=== PATIENT | female | born 1970 | race Caucasian/White ===

== ENCOUNTER → 2016-08-02 | Outpatient (CLI) | payer BC ==
[2016-08-02 10:54] LABS: ALT 55 U/L (9-52); AST 32 U/L (14-36); Cholesterol 163 mg/dL (<200); HDL Cholesterol 53 mg/dL (40-60); Triglycerides 122 mg/dL (<150)
== END | disposition home or self-care (01) ==
LOC: LABWHC1 06:59
PROVIDERS: ATTEND Family Medicine
DX: E78.2 Mixed hyperlipidemia (principal); E03.9 Hypothyroidism, unspecified
CPT/HCPCS: 36415; 80061; 84439; 84443; 84450; 84460; 84481

== ENCOUNTER → 2016-11-11 | Outpatient (CLI) | payer BC ==
--- NOTE | 2016-11-11 14:04 | MM ---
Reason for exam: screening (asymptomatic). Last mammogram was performed 1 year and 1 month ago. Physical Findings: A clinical breast exam by your physician is recommended on an annual basis and results should be correlated with mammographic findings. MG Screening Mammo w CAD Bilateral CC and MLO view(s) were taken. Prior study comparison: October 27, 2015, bilateral MG screening mammo w CAD. October 14, 2014, bilateral MG screening mammo w CAD. The breast tissue is heterogeneously dense. This may lower the sensitivity of mammography. There is chronic nodularity bilaterally. There is no dominant lesion. No significant changes when compared with prior studies. ASSESSMENT: Benign, BI-RAD 2 RECOMMENDATION: Routine screening mammogram of both breasts in 1 year.
== END | disposition home or self-care (01) ==
LOC: RADMAMWWP 07:14
PROVIDERS: ATTEND Obstetrics & Gynecology
DX: Z12.31 Encounter for screening mammogram for malignant neoplasm of breast (principal)

== ENCOUNTER → 2017-01-25 | Outpatient (CLI) | payer BC ==
[2017-01-25 09:51] LABS: CHCM 34.6; HCT 41.4 % (34.0-46.0); HDW 2.61; HGB 13.9 gm/dL (11.4-16.0); MCH 30.2 pg (25.0-35.0); MCHC 33.5 g/dL (31.0-37.0); Mean Platelet Volume 7.5; RDW 12.7 % (11.5-15.5); WBC 7.3 k/uL (3.8-10.6)
[2017-01-25 11:13] LABS: ALT 36 U/L (9-52); AST 17 U/L (14-36); Alkaline Phosphatase 51 U/L (38-126); Anion Gap 11 mmol/L; Blood Urea Nitrogen 18 mg/dL (7-17); Calcium 9.8 mg/dL (8.4-10.2); Carbon Dioxide 26 mmol/L (22-30); Chloride 103 mmol/L (98-107); Cholesterol 158 mg/dL (<200); Glucose 91 mg/dL (74-99); HDL Cholesterol 45 mg/dL (40-60); Non-African American GFR(MDRD) 59 (>60 ml/min/1.73 sqM); Potassium 4.3 mmol/L (3.5-5.1); Sodium 140 mmol/L (137-145); Total Bilirubin 0.5 mg/dL (0.2-1.3)
== END | disposition home or self-care (01) ==
LOC: LABWHC1 08:09
PROVIDERS: ATTEND Family Medicine
DX: E78.2 Mixed hyperlipidemia (principal); I10 Essential (primary) hypertension; E03.9 Hypothyroidism, unspecified
CPT/HCPCS: 36415; 80053; 80061; 84439; 84443; 84481; 85027

== ENCOUNTER → 2017-11-16 | Outpatient (CLI) | payer BC ==
--- NOTE | 2017-11-20 11:40 | MM ---
Reason for exam: screening (asymptomatic). Last mammogram was performed 1 year ago. Physical Findings: A clinical breast exam by your physician is recommended on an annual basis and results should be correlated with mammographic findings. MG 3D Screening Mammo W/Cad Bilateral CC and MLO view(s) were taken. Prior study comparison: November 11, 2016, bilateral MG screening mammo w CAD. October 27, 2015, bilateral MG screening mammo w CAD. The breast tissue is heterogeneously dense. This may lower the sensitivity of mammography. No significant changes when compared with prior studies. ASSESSMENT: Benign, BI-RAD 2 RECOMMENDATION: Routine screening mammogram of both breasts in 1 year.
== END | disposition home or self-care (01) ==
LOC: RADMAMWWP 13:21
PROVIDERS: ATTEND Obstetrics & Gynecology
DX: Z12.31 Encounter for screening mammogram for malignant neoplasm of breast (principal)
CPT/HCPCS: 77063; 77067

== ENCOUNTER → 2017-11-17 | Outpatient (CLI) | payer BC ==
[2017-11-17 09:37] LABS: HCT 39.7 % (34.0-46.0); HGB 12.9 gm/dL (11.4-16.0); MCH 28.2 pg (25.0-35.0); MCHC 32.6 g/dL (31.0-37.0); MCV 86.6 fL (80.0-100.0); Platelet Count 224 k/uL (150-450); RBC 4.58 m/uL (3.80-5.40); RDW 13.7 % (11.5-15.5); WBC 6.5 k/uL (3.8-10.6)
[2017-11-17 09:54] LABS: ALT 37 U/L (9-52); AST 25 U/L (14-36); Albumin 4.7 g/dL (3.5-5.0); Alkaline Phosphatase 50 U/L (38-126); Anion Gap 11 mmol/L; Blood Urea Nitrogen 18 mg/dL (7-17); Carbon Dioxide 29 mmol/L (22-30); Chloride 100 mmol/L (98-107); Cholesterol 203 mg/dL (<200); Glucose 90 mg/dL (74-99); HDL Cholesterol 67 mg/dL (40-60); LDL Cholesterol,Calculated 109 mg/dL (0-99); Potassium 4.5 mmol/L (3.5-5.1); Sodium 140 mmol/L (137-145); Total Bilirubin 0.7 mg/dL (0.2-1.3); Total Protein 7.9 g/dL (6.3-8.2); Triglycerides 135 mg/dL (<150)
== END ==
LOC: LABWHC1 08:10
PROVIDERS: ATTEND Family Medicine
DX: I10 Essential (primary) hypertension (principal); E03.9 Hypothyroidism, unspecified
CPT/HCPCS: 36415; 80053; 80061; 84439; 84443; 84481; 85027

== ENCOUNTER → 2018-05-07 | Outpatient (CLI) | payer BC ==
[2018-05-07 18:44] LABS: Albumin 4.4 g/dL (3.80-4.90); Anion Gap 7.5 mmol/L (4.00-12.00); Calcium 9.2 mg/dL (8.7-10.3); Carbon Dioxide 25.5 mmol/L (21.6-31.8); Globulin 2.2 g/dL (1.6-3.3); Potassium 3.8 mmol/L (3.5-5.5); Total Bilirubin 0.5 mg/dL (0.3-1.2); Total Protein 6.6 g/dL (6.2-8.2)
== END ==
LOC: LABWHC1 09:00
PROVIDERS: ATTEND Family Medicine
DX: I10 Essential (primary) hypertension (principal); E03.9 Hypothyroidism, unspecified; E78.2 Mixed hyperlipidemia
CPT/HCPCS: 36415; 80053; 80061; 84439; 84443; 84481

== ENCOUNTER → 2018-08-01 | Outpatient (CLI) | payer BC ==
[2018-08-01 16:41] LABS: T4, Free (Free Thyroxine) 1.3 ng/dL (0.80-1.80)
== END | disposition home or self-care (01) ==
LOC: LABWHC1 09:02
PROVIDERS: ATTEND Family Medicine
DX: E03.9 Hypothyroidism, unspecified (principal)
CPT/HCPCS: 36415; 84439; 84443; 84481

== ENCOUNTER → 2018-09-13 | Outpatient (CLI) | payer BC ==
[2018-09-13 16:24] LABS: T4, Free (Free Thyroxine) 1.2 ng/dL (0.80-1.80)
== END | disposition home or self-care (01) ==
LOC: LABWHC1 08:22
PROVIDERS: ATTEND Family Medicine
DX: E03.9 Hypothyroidism, unspecified (principal)
CPT/HCPCS: 36415; 84439; 84443

== ENCOUNTER → 2018-12-05 | Outpatient (CLI) | payer BC ==
--- NOTE | 2018-12-06 11:31 | MM ---
Reason for exam: screening (asymptomatic). Last mammogram was performed 1 year and 1 month ago. Physical Findings: A clinical breast exam by your physician is recommended on an annual basis and results should be correlated with mammographic findings. MG 3D Screening Mammo W/Cad Bilateral CC and MLO view(s) were taken. Prior study comparison: November 16, 2017, bilateral MG 3d screening mammo w/cad. November 11, 2016, bilateral MG screening mammo w CAD. The breast tissue is heterogeneously dense. This may lower the sensitivity of mammography. No suspicious abnormality. No significant changes when compared with prior studies. ASSESSMENT: Negative, BI-RAD 1 RECOMMENDATION: Routine screening mammogram of both breasts in 1 year.
== END | disposition home or self-care (01) ==
LOC: RADMAMWWP 07:56
PROVIDERS: ATTEND Obstetrics & Gynecology
DX: Z12.31 Encounter for screening mammogram for malignant neoplasm of breast (principal)
CPT/HCPCS: 77063; 77067

== ENCOUNTER → 2018-12-05 | Outpatient (CLI) | payer BC ==
[2018-12-05 08:40] LABS: Appearance,Urine Clear (Clear); Bilirubin,Urine Negative (Negative); Blood,Urine Negative (Negative); Color,Urine Yellow; Glucose,Urine (UA) Negative (Negative); Ketones,Urine Negative (Negative); Leukocyte Esterase,Urine Negative (Negative); Nitrite,Urine Negative (Negative); PH, Urine 6.5 (5.0-8.0); Protein,Urine Negative (Negative); Specific Gravity,Urine 1.022 (1.001-1.035); Urobilinogen,Urine <2.0 mg/dL (<2.0)
[2018-12-05 08:41] LABS: HGB 11.8 gm/dL (11.4-16.0); MCH 26.9 pg (25.0-35.0); MCHC 33.6 g/dL (31.0-37.0); MCV 80.2 fL (80.0-100.0); Mean Platelet Volume 6.5; Platelet Count 226 k/uL (150-450); RBC 4.36 m/uL (3.80-5.40); RDW 14.5 % (11.5-15.5); WBC 8.6 k/uL (3.8-10.6)
[2018-12-05 17:31] LABS: Albumin 4.3 g/dL (3.80-4.90); Albumin/Globulin Ratio 2.05 (1.60-3.17); Anion Gap 12.4 mmol/L (4.00-12.00); BUN/Creat Ratio 17.78 Ratio (12.00-20.00); Calcium 9.2 mg/dL (8.7-10.3); Carbon Dioxide 29.6 mmol/L (21.6-31.8); Chol/HDL Ratio 2.69; Globulin 2.1 g/dL (1.6-3.3); LDL Cholesterol,Calculated 73.2 mg/dL (0.0-131.0); Potassium 3.4 mmol/L (3.5-5.5); Total Bilirubin 0.4 mg/dL (0.2-1.2); Total Protein 6.4 g/dL (6.2-8.2); VLDL Calculation 24.8 mg/dL (5.00-40.00)
== END | disposition home or self-care (01) ==
LOC: LABWHC1 08:16
PROVIDERS: ATTEND Family Medicine
DX: Z00.01 Encounter for general adult medical examination with abnormal findings (principal)
CPT/HCPCS: 36415; 80053; 80061; 81003; 85027

== ENCOUNTER → 2019-06-24 | Outpatient (CLI) | payer BC ==
[2019-06-24 15:33] LABS: African American GFR (CKD) 76.6 (60.0-200.0); Albumin 4.5 g/dL (3.80-4.90); Albumin/Globulin Ratio 1.8 (1.60-3.17); Anion Gap 5.8 mmol/L (4.00-12.00); Calcium 9.8 mg/dL (8.7-10.3); Carbon Dioxide 32.2 mmol/L (21.6-31.8); Chol/HDL Ratio 3.4; Globulin 2.5 g/dL (1.6-3.3); LDL Cholesterol,Calculated 85.8 mg/dL (0.0-131.0); Non-African American GFR(CKD) 66.1 (60.0-200.0); Potassium 3.5 mmol/L (3.5-5.5); Total Bilirubin 0.5 mg/dL (0.3-1.2); VLDL Calculation 46.2 mg/dL (5.00-40.00)
[2019-06-24 15:42] LABS: T4, Free (Free Thyroxine) 1.4 ng/dL (0.80-1.80)
== END | disposition home or self-care (01) ==
LOC: LABWHC1 09:38
PROVIDERS: ATTEND Family Medicine
DX: I10 Essential (primary) hypertension (principal); E03.9 Hypothyroidism, unspecified; E78.2 Mixed hyperlipidemia
CPT/HCPCS: 36415; 80053; 80061; 84439; 84443; 84481

== ENCOUNTER → 2019-07-30 | Outpatient (CLI) | payer BC | END | disposition home or self-care (01) | LOC: LABWHC1 11:19 | PROVIDERS: ATTEND Pediatrics Pediatric Infectious Diseases | DX: U07.1 COVID-19 (principal) | CPT/HCPCS: 87635 ==

== ENCOUNTER → 2019-08-06 | Outpatient (CLI) | payer BC | END | disposition home or self-care (01) | LOC: LABWHC1 08:10 | PROVIDERS: ATTEND Pediatrics Pediatric Infectious Diseases | DX: Z11.59 Encounter for screening for other viral diseases (principal) ==

== ENCOUNTER → 2019-12-19 | Outpatient (CLI) | payer BC ==
[2019-12-19 10:53] LABS: HCT 43.7 % (34.0-46.0); HGB 14.2 gm/dL (11.4-16.0); MCH 30.2 pg (25.0-35.0); MCHC 32.4 g/dL (31.0-37.0); MCV 93.4 fL (80.0-100.0); Mean Platelet Volume 7.7; Platelet Count 215 k/uL (150-450); RBC 4.68 m/uL (3.80-5.40); RDW 13.1 % (11.5-15.5); WBC 6.9 k/uL (3.8-10.6)
[2019-12-19 16:09] LABS: African American GFR (CKD) 76.1 (60.0-200.0); Albumin 4.4 g/dL (3.80-4.90); Albumin/Globulin Ratio 1.91 (1.60-3.17); Anion Gap 8.9 mmol/L (4.00-12.00); Calcium 9.8 mg/dL (8.7-10.3); Carbon Dioxide 32.1 mmol/L (21.6-31.8); Chol/HDL Ratio 3.14; Globulin 2.3 g/dL (1.6-3.3); Non-African American GFR(CKD) 65.6 (60.0-200.0); Potassium 3.5 mmol/L (3.5-5.5); Total Bilirubin 0.5 mg/dL (0.3-1.2); Total Protein 6.7 g/dL (6.2-8.2)
[2019-12-19 16:19] LABS: T4, Free (Free Thyroxine) 1.3 ng/dL (0.80-1.80)
== END | disposition home or self-care (01) ==
LOC: LABWHC1 08:35
PROVIDERS: ATTEND Family Medicine
DX: Z00.01 Encounter for general adult medical examination with abnormal findings (principal); E03.9 Hypothyroidism, unspecified
CPT/HCPCS: 36415; 80053; 80061; 84439; 84443; 84481; 85027

== ENCOUNTER → 2020-01-27 | Outpatient (CLI) | payer BC ==
[2020-01-27 09:15] LABS: Basophils # (A) 0.1 k/uL (0-0.2); Basophils % (A) 1 %; Eosinophils # (A) 0.2 k/uL (0-0.7); Eosinophils % (A) 2 %; HCT 40.8 % (34.0-46.0); HGB 13.7 gm/dL (11.4-16.0); Lymphocytes # (A) 2.5 k/uL (1.0-4.8); Lymphocytes % (A) 33 %; MCH 30.4 pg (25.0-35.0); MCHC 33.6 g/dL (31.0-37.0); MCV 90.5 fL (80.0-100.0); Mean Platelet Volume 7.3; Monocytes # (A) 0.4 k/uL (0-1.0); Monocytes % (A) 6 %; Neutrophils # (A) 4.2 k/uL (1.3-7.7); Neutrophils % (A) 56 %; Platelet Count 191 k/uL (150-450); WBC 7.5 k/uL (3.8-10.6)
== END | disposition home or self-care (01) ==
LOC: LABPAT 07:51
PROVIDERS: ATTEND Obstetrics & Gynecology
DX: Z01.818 Encounter for other preprocedural examination (principal); N90.69 Other specified hypertrophy of vulva; I10 Essential (primary) hypertension
CPT/HCPCS: 36415; 85025

== ENCOUNTER → 2020-01-29 | Outpatient (CLI) | payer BC ==
--- NOTE | 2020-01-29 14:10 | MM ---
Reason for exam: screening (asymptomatic). Last mammogram was performed 1 year and 2 months ago. Physical Findings: A clinical breast exam by your physician is recommended on an annual basis and results should be correlated with mammographic findings. MG 3D Screening Mammo W/Cad Bilateral CC and MLO view(s) were taken. Prior study comparison: December 05, 2018, bilateral MG 3d screening mammo w/cad. November 16, 2017, bilateral MG 3d screening mammo w/cad. There are scattered fibroglandular densities. There are benign appearing round calcifications in the left breast. There is no discrete abnormality. ASSESSMENT: Benign, BI-RAD 2 RECOMMENDATION: Routine screening mammogram of both breasts in 1 year.
== END | disposition home or self-care (01) ==
LOC: RADMAMWWP 11:39
PROVIDERS: ATTEND Obstetrics & Gynecology
DX: Z12.31 Encounter for screening mammogram for malignant neoplasm of breast (principal)
CPT/HCPCS: 77063; 77067

== ENCOUNTER 2020-02-03 06:56 | Day surgery (SDC) | payer BC ==
--- NOTE | 2020-01-23 14:43 | HP ---
HISTORY AND PHYSICAL This is a 49-year-old white female, 3, para 2-1-0-2 who presents with a history of left labial enlargement and elongation. She states that the labia becomes dragged into the lower vaginal vault with pulling and pain at the time of intercourse. It has also become caught in her undergarments causing pain with daily activities. She is requesting surgical reduction of the left labia minora. REVIEW OF SYSTEMS: Otherwise negative. PAST MEDICAL HISTORY: Significant for anemia, asthma, hypertension, hypothyroidism, thyroid disease. History of HSV. Asthma. PAST SURGICAL HISTORY: Bladder suspension 2013, Lasix surgery 2005, venous stripping x3, and tubal ligation in the past. CURRENT MEDICATIONS: Acyclovir 400 mg tablets daily. Weekly allergy injections. Hydrochlorothiazide daily, metoprolol once daily, simvastatin once daily, Symbicort as needed, Ventolin inhaler as needed, vitamin B complex, vitamin D3, Zyrtec 10 mg once daily, and Montelukast sodium once daily. ALLERGIES: Include PENICILLIN to which reports an unknown reaction. FAMILY HISTORY: Significant for hypertension, diabetes, CVA, and cirrhosis of the liver. OBSTETRIC HISTORY: Significant for normal spontaneous vaginal deliveries x3, unremarkable. SOCIAL HISTORY: Social alcohol use, former tobacco smoker, 1 pack per day. She is and a high- school graduate. On examination, patient is 5 foot 5 inches, 208 pounds, BMI 34. Blood pressure 120/70. HEENT: Exam reveals no thyromegaly, no cervical lymphadenopathy. CHEST: Clear in all yeung. CARDIAC: Exam reveals regular rate and rhythm with no murmur, click, or rub. ABDOMEN: Moderately obese, no organosplenomegaly, no herniorrhaphy. CHEST: Clear to auscultation in all yeung anteriorly and posteriorly. CARDIAC: Exam reveals regular rate and rhythm without murmur, click, or rub. Breasts are bilaterally symmetric to inspection with no skin changes, axillary adenopathy, nipple discharge, or discernible lesions or masses. On external genitalia, the left labia measures 6 cm in length and is quite redundant. The right labia minora measures 2 cm. There is no evidence of trauma. The cervix is within normal limits to inspection, uterus is small, mobile, anteverted, anteflexed. Adnexa are negative bilaterally. Rectal exam reveals good sphincter tone, FIT negative stool. Skin exam reveals no rashes, no lesions. No areas of discoloration. Patient is alert and oriented x3 with intact insight and judgment and normal mood and affect. ASSESSMENT: Dyspareunia with left labial hypertrophy and elongation, patient requesting surgical reduction. PLAN: I have reviewed with the patient the risks including adhesion formation, postoperative dyspareunia, risk of infection, bleeding, or poor wound healing. I have reviewed the risks of aspiration, nerve damage, bleed, or even . Second opinion is offered and declined. We will proceed with surgery as noted above. MMODL / IJN: [id number] /
[2020-01-29 12:38] VITALS: BMI 34.7
[~2020-02-03 06:56] MED LIST: Pre Op ABX Message 1 EACH MISC MISCELLANE ONE
[2020-02-03] MEDS ORDERED: LACTATED RINGERS 1,000 ML IV ONE (07:24)
[2020-02-03] MEDS ORDERED: ONDANSETRON 4 MG/2 ML VIAL ONE (07:26)
[2020-02-03] MEDS ORDERED: ONDANSETRON 4 MG/2 ML VIAL IVP ONE (07:28)
[2020-02-03] MEDS ORDERED: DEXAMETHASONE SOD PHOSPHATE 4 MG/ML 1 ML VIAL IVP ONE (07:29)
[2020-02-03] MEDS ORDERED: fentaNYL (PF) 50 MCG/ML 2 ML AMP ONE (08:19)
[2020-02-03] MEDS ORDERED: PROPOFOL 10 MG/ML 20 ML VIAL IV ONE (08:19)
[2020-02-03] MEDS ORDERED: SUCCINYLCHOLINE CHLORIDE 100 MG/5 ML SYR IV ONE (08:19)
[2020-02-03] MEDS ORDERED: LIDOCAINE 1% INJ 10MG/ML (20 ML MDV) ONE (08:19)
[2020-02-03] MEDS ORDERED: KETOROLAC 15 MG/ML 1 ML VIAL ONE (08:19)
[2020-02-03] MEDS ORDERED: BACITRACIN ZINC 500 UNIT/GM OINT 28.4 GM TUBE TOPICAL ONE (08:47)
--- NOTE | 2020-02-03 09:00 | P.OP ---
Date of Procedure: 02/03/20 Preoperative Diagnosis: Redundant left labial minora, dyspareunia Postoperative Diagnosis: Same Procedure(s) Performed: Reduction left labial minora Anesthesia: CHANCEA Surgeon: Aurelia Mendez Estimated Blood Loss (ml): 10 IV fluids (ml): 300 Urine output (ml): 25 Pathology: none sent Condition: stable Disposition: PACU Description of Procedure: Patient is brought to the operating suite where general anesthetic is administered without difficulty. The appropriate timeout is performed to assure proper patient and procedural identification. Urine hCG is negative. Antibiotics are not deemed necessary. The perineal body, cervix labia and external genitalia are all prepped and draped in usual sterile fashion. A sharp scalpel is used to incise and reduce the left labia minora for approximately 5 cm of tissue medially, 7 cm in the superior inferior aspect. The base is cauterized with electrocautery for excellent hemostasis. A 2-0 Vicryl is used now in a running fashion to bring the edges of the defect together. The left labia minora now appears symmetric to the right. Basic tracing is placed on the wound. . Pad is placed. All sponge needle and enhancement counts are correct. Toradol is given to the patient prior to leaving the operative suite. All sponge needle and enhancement counts are correct. Specimen is not sent to pathology. Patient is brought back to the recovery room in very good condition with stable vital signs including a blood pressure 119/63, pulse 57, 98% O2 saturation. She will follow-up with me in the office in 2 weeks. Ibuprofen will be used postoperatively as needed for pain. No intercourse.
[2020-02-03 09:08] VITALS: TEMP 97
[2020-02-03] MEDS ORDERED: HYDROmorphone 0.5 MG/0.5 ML SYRINGE IVP ONE (09:11)
[2020-02-03 09:41] VITALS: PULSE 56
[2020-02-03 09:57] VITALS: BP 116/69; RESP 18
== END 2020-02-03 10:08 | disposition home or self-care (01) ==
LOC: OR 06:56
PROVIDERS: ATTEND Obstetrics & Gynecology
DX: N90.69 Other specified hypertrophy of vulva (principal); N94.10 Unspecified dyspareunia; D64.9 Anemia, unspecified; J45.909 Unspecified asthma, uncomplicated; I10 Essential (primary) hypertension; E03.9 Hypothyroidism, unspecified; Z87.891 Personal history of nicotine dependence; Z86.19 Personal history of other infectious and parasitic diseases; Z98.51 Tubal ligation status; Z98.890 Other specified postprocedural states; Z82.49 Family history of ischemic heart disease and other diseases of the circulatory system; Z83.3 Family history of diabetes mellitus; Z82.3 Family history of stroke; Z83.79 Family history of other diseases of the digestive system; Z79.899 Other long term (current) drug therapy; Z88.0 Allergy status to penicillin
CPT/HCPCS: 81025; 56620; J1100; J2405; J2001; J3010; J1885; J0330; J2704; J1170

== ENCOUNTER 2020-02-12 08:54 | Day surgery (SDC) | payer BC ==
[2020-02-10 12:30] VITALS: BMI 35.7
[~2020-02-12 08:54] MED LIST changes: +LACTATED RINGERS 1,000 ML IV SCH; -Pre Op ABX Message 1 EACH MISC MISCELLANE ONE
[2020-02-12 09:17] VITALS: TEMP 97
[2020-02-12] MEDS ORDERED: PROPOFOL 10 MG/ML 20 ML VIAL IV ONE (10:42)
--- NOTE | 2020-02-12 10:54 | P.PCN ---
Date of Procedure: 02/12/20 Procedure(s) Performed: BRIEF HISTORY: Patient is a 49-year-old pleasant white female scheduled for an elective colonoscopy as a part of screening for colorectal neoplasia. PROCEDURE PERFORMED: Colonoscopy. PREOPERATIVE DIAGNOSIS: Screening for colon cancer. IV sedation per Anesthesia. PROCEDURE: After informed consent was obtained, the patient, was brought into the endoscopy unit. IV sedation was administered by Anesthesia under continuous monitoring. Digital rectal examination was normal. Initially the Olympus CF-160 flexible video colonoscope was then inserted in the rectum, gradually advanced into the cecum without any difficulty. Careful examination was performed as the scope was gradually being withdrawn. Ileocecal valve and the appendiceal orifice were visualized and appeared normal. Prep was excellent. Mucosa of the cecum, ascending colon, transverse colon, descending colon, sigmoid colon, and rectum appeared normal. Retroflexion was performed in the rectum and no lesions were seen. The patient tolerated the procedure well. IMPRESSION: Normal-appearing colon from rectum to cecum with no evidence of colorectal neoplasia . RECOMMENDATIONS: Findings of this examination were discussed with the patient as well as a family. She was advised to have a repeat screening colonoscopy in 10 years.
[2020-02-12 11:14] VITALS: BP 118/77; PULSE 60; RESP 16
== END 2020-02-12 11:22 | disposition home or self-care (01) ==
LOC: ORWHC2ENDO 08:54
PROVIDERS: ATTEND Internal Medicine Gastroenterology
DX: Z12.11 Encounter for screening for malignant neoplasm of colon (principal); I10 Essential (primary) hypertension; E78.5 Hyperlipidemia, unspecified; E07.9 Disorder of thyroid, unspecified; Z79.890 Hormone replacement therapy; Z79.51 Long term (current) use of inhaled steroids; Z79.899 Other long term (current) drug therapy; Z88.0 Allergy status to penicillin
CPT/HCPCS: 84703; J2704; G0121; 45378

== ENCOUNTER → 2020-02-26 | Outpatient (CLI) | payer BC ==
[2020-02-26 16:48] LABS: Basophils % (A) 0 %; Eosinophils # (A) 0.2 k/uL (0-0.7); Eosinophils % (A) 3 %; HCT 39.9 % (34.0-46.0); HGB 13.4 gm/dL (11.4-16.0); Lymphocytes # (A) 2.3 k/uL (1.0-4.8); Lymphocytes % (A) 36 %; MCH 29.9 pg (25.0-35.0); MCHC 33.6 g/dL (31.0-37.0); Mean Platelet Volume 7.8; Monocytes # (A) 0.5 k/uL (0-1.0); Monocytes % (A) 7 %; Neutrophils # (A) 3.4 k/uL (1.3-7.7); Neutrophils % (A) 52 %; Platelet Count 269 k/uL (150-450); RBC 4.49 m/uL (3.80-5.40); RDW 13.8 % (11.5-15.5); WBC 6.5 k/uL (3.8-10.6)
[2020-02-26 23:56] LABS: African American GFR (CKD) 76.1 (60.0-200.0); Albumin 4.5 g/dL (3.80-4.90); Albumin/Globulin Ratio 1.96 (1.60-3.17); Anion Gap 5.6 mmol/L (4.00-12.00); Calcium 9.4 mg/dL (8.7-10.3); Carbon Dioxide 33.4 mmol/L (21.6-31.8); Globulin 2.3 g/dL (1.6-3.3); Non-African American GFR(CKD) 65.6 (60.0-200.0); Potassium 3.4 mmol/L (3.5-5.5); Total Bilirubin 0.4 mg/dL (0.2-1.2); Total Protein 6.8 g/dL (6.2-8.2)
== END | disposition home or self-care (01) ==
LOC: LABWHC1 15:24
PROVIDERS: ATTEND Physician Assistant
DX: K62.5 Hemorrhage of anus and rectum (principal)
CPT/HCPCS: 36415; 80053; 85025

== ENCOUNTER 2020-03-06 20:32 | Observation (INO) | payer BC ==
[2020-03-06] MEDS ORDERED: SODIUM CHLORIDE 0.9% 1,000 ML IV STA (21:09)
--- NOTE | 2020-03-06 21:13 | ED ---
GI Bleed HPI - General Chief complaint: GI Bleed Stated complaint: GI bleed Time Seen by Provider: 03/06/20 20:49 Source: patient, RN notes reviewed, old records reviewed Mode of arrival: ambulatory Limitations: no limitations - History of Present Illness Initial comments: This is a 49-year-old female DF for evaluation, she has recent colonoscopy and has had GI bleeding for one month bright red blood per rectum. States she does have known history of hemorrhoids is similar to hemorrhoidal bleeding patient is at times feeling lightheaded dizzy and concern over significant blood loss and persistent blood loss. Otherwise no abdominal pain MD complaint: blood on toilet paper, blood streaked stool -: month(s) Radiation: none Quality: painless Consistency: constant Improves with: none Worsens with: none Context: hemorrhoids, other (Patient also has had recent colonoscopy) Associated Symptoms: weakness, other (Occasional symptoms of near-syncope) - Related Data Home Medications Medication Instructions Recorded Confirmed Albuterol Inhaler [Ventolin Hfa 2 puff INHALATION RT-QID PRN 01/29/20 03/06/20 Inhaler] Cetirizine HCl [Zyrtec] 10 mg PO DAILY 01/29/20 03/06/20 Cholecalciferol [Vitamin D3 (25 1,000 unit PO DAILY 01/29/20 03/06/20 Mcg = 1000 Iu)] Levothyroxine Sodium [Tirosint] 88 mcg PO DAILY 01/29/20 03/06/20 Metoprolol Tartrate [Lopressor] 25 mg PO DAILY 01/29/20 03/06/20 Montelukast Sodium [Singulair] 10 mg PO HS 01/29/20 03/06/20 Simvastatin [Zocor] 20 mg PO HS 01/29/20 03/06/20 Vitamin B Complex 1 each PO DAILY 01/29/20 03/06/20 traZODone HCL 50 mg PO HS PRN 01/29/20 03/06/20 Budesonide/Formoterol Fumarate 2 puff INHALATION RT-BID 02/10/20 03/06/20 [Symbicort 160-4.5 Mcg Inhaler] Acetaminophen [Tylenol] 325 mg PO DAILY PRN 03/06/20 03/06/20 Acyclovir [Zovirax] 400 mg PO DAILY 03/06/20 03/06/20 Fluticasone Propionate [Flonase 1 spray EA NOSTRIL DAILY PRN 03/06/20 03/06/20 Allergy Relief] Ibuprofen [Motrin Ib] 600 mg PO ONCE PRN 03/06/20 03/06/20 Multivit-Min/Iron/Folic/Lutein 1 tab PO DAILY 03/06/20 03/06/20 [Centrum Silver Women Tablet] hydroCHLOROthiazide [Hydrodiuril] 50 mg PO BID 03/06/20 03/06/20 Previous Rx's Medication Instructions Recorded polyethylene glycoL 3350 [Miralax] 17 gm PO DAILY powd.pack 03/07/20 Allergies Allergy/AdvReac Type Severity Reaction Status Date / Time Penicillins Allergy Unknown Verified 03/06/20 22:07 Childhood Sulfa (Sulfonamide Allergy Unknown Verified 03/06/20 22:07 Antibiotics) Childhood adhesive tape AdvReac Itching Verified 03/06/20 22:07 Review of Systems ROS Statement: Those systems with pertinent positive or pertinent negative responses have been documented in the HPI. ROS Other: All systems not noted in ROS Statement are negative. Past Medical History Past Medical History: Asthma, Hyperlipidemia, Hypertension Additional Past Medical History / Comment(s): INTERNAL BLEEDING HEMORRHOIDS History of Any Multi-Drug Resistant Organisms: None Reported Past Surgical History: No Surgical Hx Reported, Bladder Surgery, Tubal Ligation Additional Past Surgical History / Comment(s): 02/03/20-REDUCTION OF LT LABIAL MINOR. RT VEIN LIGATION. BLADDER SUSPENSION. D & C Past Anesthesia/Blood Transfusion Reactions: Postoperative Nausea & Vomiting (PONV) Past Psychological History: No Psychological Hx Reported Smoking Status: Former smoker Past Alcohol Use History: None Reported Past Drug Use History: None Reported - Past Family History Mother Family Medical History: No Reported History General Exam Limitations: no limitations General appearance: alert, in no apparent distress Head exam: Present: atraumatic, normocephalic, normal inspection Eye exam: Present: normal appearance, PERRL, EOMI. Absent: scleral icterus, conjunctival injection, periorbital swelling ENT exam: Present: normal exam, mucous membranes moist Neck exam: Present: normal inspection. Absent: tenderness, meningismus, lymphadenopathy Respiratory exam: Present: normal lung sounds bilaterally. Absent: respiratory distress, wheezes, rales, rhonchi, stridor Cardiovascular Exam: Present: regular rate, normal rhythm, normal heart sounds. Absent: systolic murmur, diastolic murmur, rubs, gallop, clicks GI/Abdominal exam: Present: soft, normal bowel sounds. Absent: distended, tenderness, guarding, rebound, rigid Extremities exam: Present: normal inspection, full ROM, normal capillary refill. Absent: tenderness, pedal edema, joint swelling, calf tenderness Back exam: Present: normal inspection Neurological exam: Present: alert, oriented X3, CN II-XII intact Psychiatric exam: Present: normal affect, normal mood Skin exam: Present: warm, dry, intact, normal color. Absent: rash Course Vital Signs 03/06/20 03/06/20 20:43 22:30 Temperature 99.2 F Pulse Rate 91 88 Respiratory 18 18 Rate Blood Pressure 161/90 131/84 O2 Sat by Pulse 96 97 Oximetry - Reevaluation(s) Reevaluation #1: Medical record is reviewed Patient reevaluated feeling fine, no significant acute bleeding here in the ER Patient informed results questions answered Patient prefers observation Medical Decision Making - Medical Decision Making 49-year-old female presents today for evaluation regards to right red blood per rectum with hemorrhoids. Patient has recent colonoscopy and some bleeding from rectum for one month - Lab Data Result diagrams: 03/06/20 21:25 03/06/20 21:25 Lab Results 03/06/20 03/06/20 03/06/20 Range/Units 21:25 21:25 21:25 WBC 7.1 (3.8-10.6) k/uL RBC 4.46 (3.80-5.40) m/uL Hgb 13.7 (11.4-16.0) gm/dL Hct 38.8 (34.0-46.0) % MCV 87.2 (80.0-100.0) fL MCH 30.7 (25.0-35.0) pg MCHC 35.3 (31.0-37.0) g/dL RDW 13.1 (11.5-15.5) % Plt Count 258 (150-450) k/uL MPV 7.4 Neutrophils % 65 % Lymphocytes % 25 % Monocytes % 4 % Eosinophils % 3 % Basophils % 1 % Neutrophils # 4.6 (1.3-7.7) k/uL Lymphocytes # 1.8 (1.0-4.8) k/uL Monocytes # 0.3 (0-1.0) k/uL Eosinophils # 0.2 (0-0.7) k/uL Basophils # 0.1 (0-0.2) k/uL PT 9.5 (9.0-12.0) sec INR 0.9 (<1.2) APTT 22.8 (22.0-30.0) sec Sodium 137 (137-145) mmol/L Potassium 3.3 L (3.5-5.1) mmol/L Chloride 100 (98-107) mmol/L Carbon Dioxide 28 (22-30) mmol/L Anion Gap 9 mmol/L BUN 14 (7-17) mg/dL Creatinine 0.88 (0.52-1.04) mg/dL Est GFR (CKD-EPI)AfAm 89 (>60 ml/min/1.73 sqM) Est GFR (CKD-EPI)NonAf 77 (>60 ml/min/1.73 sqM) Glucose 171 H (74-99) mg/dL Calcium 9.7 (8.4-10.2) mg/dL Magnesium 1.7 (1.6-2.3) mg/dL Total Bilirubin 0.3 (0.2-1.3) mg/dL AST 36 (14-36) U/L ALT 49 H (4-34) U/L Alkaline Phosphatase 64 (38-126) U/L Creatine Kinase 85 (30-135) U/L Troponin I (0.000-0.034) ng/mL Total Protein 7.7 (6.3-8.2) g/dL Albumin 4.6 (3.5-5.0) g/dL Blood Type Blood Type Confirm Blood Type Recheck Bld Type Recheck Status Antibody Screen Spec Expiration Date 03/06/20 03/06/20 03/06/20 Range/Units 21:25 21:25 21:43 WBC (3.8-10.6) k/uL RBC (3.80-5.40) m/uL Hgb (11.4-16.0) gm/dL Hct (34.0-46.0) % MCV (80.0-100.0) fL MCH (25.0-35.0) pg MCHC (31.0-37.0) g/dL RDW (11.5-15.5) % Plt Count (150-450) k/uL MPV Neutrophils % % Lymphocytes % % Monocytes % % Eosinophils % % Basophils % % Neutrophils # (1.3-7.7) k/uL Lymphocytes # (1.0-4.8) k/uL Monocytes # (0-1.0) k/uL Eosinophils # (0-0.7) k/uL Basophils # (0-0.2) k/uL PT (9.0-12.0) sec INR (<1.2) APTT (22.0-30.0) sec Sodium (137-145) mmol/L Potassium (3.5-5.1) mmol/L Chloride (98-107) mmol/L Carbon Dioxide (22-30) mmol/L Anion Gap mmol/L BUN (7-17) mg/dL Creatinine (0.52-1.04) mg/dL Est GFR (CKD-EPI)AfAm (>60 ml/min/1.73 sqM) Est GFR (CKD-EPI)NonAf (>60 ml/min/1.73 sqM) Glucose (74-99) mg/dL Calcium (8.4-10.2) mg/dL Magnesium (1.6-2.3) mg/dL Total Bilirubin (0.2-1.3) mg/dL AST (14-36) U/L ALT (4-34) U/L Alkaline Phosphatase (38-126) U/L Creatine Kinase (30-135) U/L Troponin I <0.012 (0.000-0.034) ng/mL Total Protein (6.3-8.2) g/dL Albumin (3.5-5.0) g/dL Blood Type A Negative Blood Type Confirm A Negative Blood Type Recheck No Previous Record Bld Type Recheck Status CABO Indicated Antibody Screen NEGATIVE Spec Expiration Date 03/09/20202324 Disposition Clinical Impression: Hemorrhoids, Lower gastrointestinal hemorrhage Disposition: ADMITTED IP TO THIS [facility] Condition: Good Is patient prescribed a controlled substance at d/c from ED?: No
[2020-03-06 21:39] LABS: Basophils # (A) 0.1 k/uL (0-0.2); Basophils % (A) 1 %; Eosinophils # (A) 0.2 k/uL (0-0.7); Eosinophils % (A) 3 %; HCT 38.8 % (34.0-46.0); HGB 13.7 gm/dL (11.4-16.0); Lymphocytes # (A) 1.8 k/uL (1.0-4.8); Lymphocytes % (A) 25 %; MCH 30.7 pg (25.0-35.0); MCHC 35.3 g/dL (31.0-37.0); MCV 87.2 fL (80.0-100.0); Mean Platelet Volume 7.4; Monocytes # (A) 0.3 k/uL (0-1.0); Monocytes % (A) 4 %; Neutrophils # (A) 4.6 k/uL (1.3-7.7); Neutrophils % (A) 65 %; Platelet Count 258 k/uL (150-450); RBC 4.46 m/uL (3.80-5.40); RDW 13.1 % (11.5-15.5); WBC 7.1 k/uL (3.8-10.6)
[2020-03-06 21:46] LABS: INR 0.9 (<1.2); Prothrombin Time 9.5 sec (9.0-12.0)
[2020-03-06 21:47] LABS: Partial Thromboplastin Time 22.8 sec (22.0-30.0)
[2020-03-06 21:49] LABS: Albumin 4.6 g/dL (3.5-5.0); Calcium 9.7 mg/dL (8.4-10.2); Magnesium 1.7 mg/dL (1.6-2.3); Potassium 3.3 mmol/L (3.5-5.1); Total Bilirubin 0.3 mg/dL (0.2-1.3); Total Protein 7.7 g/dL (6.3-8.2)
[2020-03-07 03:30] VITALS: RESP 16
[2020-03-07 08:08] VITALS: BP 138/78; PULSE 67; TEMP 96.5
[2020-03-07] MEDS ORDERED: polyethylene glycoL 3350 17 GM POWD.PACK PO SCH (09:00)
[2020-03-07] MEDS ORDERED: traZODone HCL 50 MG TAB PO PRN (11:21)
[2020-03-07] MEDS ORDERED: ACETAMINOPHEN TAB 325 MG TAB PO PRN (11:21)
[2020-03-07] MEDS ORDERED: IBUPROFEN 600 MG TAB PO PRN (11:21)
[2020-03-07] MEDS ORDERED: ALBUTEROL NEBULIZED 2.5 MG/3 ML INHALATION PRN (11:21)
[2020-03-07] MEDS ORDERED: FLUTICASONE 50MCG/SPRAY NASAL 16GM EA NOSTRIL PRN (11:21)
[2020-03-07] MEDS ORDERED: SODIUM CHLORIDE 0.9% 1,000 ML IV SCH (11:30)
[2020-03-07] MEDS ORDERED: CHOLECALCIFEROL 1,000 UNIT TAB PO SCH (11:30)
[2020-03-07] MEDS ORDERED: ACYCLOVIR 200 MG CAP PO SCH (11:30)
[2020-03-07] MEDS ORDERED: METOPROLOL TARTRATE 25 MG TAB PO SCH (11:30)
[2020-03-07] MEDS ORDERED: MULTIVITAMINS, THERA 1 EACH TAB PO SCH (11:30)
[2020-03-07] MEDS ORDERED: LEVOTHYROXINE SODIUM 88 MCG PO SCH (11:30)
[2020-03-07] MEDS ORDERED: LORATADINE 10 MG TAB PO SCH (11:30)
[2020-03-07] MEDS ORDERED: NON FORMULARY DRUG (Vitamin B Complex [Vitamin B Complex] 1 EACH Capsule) PO SCH (11:30)
--- NOTE | 2020-03-07 12:58 | P.GSCN ---
History of Present Illness Consult date: 03/07/20 Reason for Consult: Rectal bleeding History of present illness: The patient is a 49-year-old female who is been having some rectal bleeding. Jamel jacobs underwent a normal colonoscopy February 11. She has had rectal bleeding from internal hemorrhoids in the past which was treated with suppositories for 5 years ago. This rectal bleeding is not painful. She doesn't have any diarrhea or constipation. No perianal pain or ripping. Main symptom is red blood in the toilet bowl Review of Systems All systems: negative Past Medical History Past Medical History: Asthma, Hyperlipidemia, Hypertension Additional Past Medical History / Comment(s): INTERNAL BLEEDING HEMORRHOIDS, hypothyroidism History of Any Multi-Drug Resistant Organisms: None Reported Past Surgical History: No Surgical Hx Reported, Bladder Surgery, Tubal Ligation Additional Past Surgical History / Comment(s): 02/03/20-REDUCTION OF LT LABIAL MINOR. RT VEIN LIGATION. BLADDER SUSPENSION. D & C Past Anesthesia/Blood Transfusion Reactions: Postoperative Nausea & Vomiting (PO NV) Past Psychological History: No Psychological Hx Reported Smoking Status: Never smoker Past Alcohol Use History: None Reported Additional Past Alcohol Use History / Comment(s): SMOKED FOR ABOUT 6 MONTHS A TEEN Past Drug Use History: None Reported - Past Family History Mother Family Medical History: No Reported History Medications and Allergies Home Medications Medication Instructions Recorded Confirmed Type Albuterol Inhaler [Ventolin Hfa 2 puff INHALATION RT-QID PRN 01/29/20 03/06/20 History Inhaler] Cetirizine HCl [Zyrtec] 10 mg PO DAILY 01/29/20 03/06/20 History Cholecalciferol [Vitamin D3 (25 1,000 unit PO DAILY 01/29/20 03/06/20 History Mcg = 1000 Iu)] Levothyroxine Sodium [Tirosint] 88 mcg PO DAILY 01/29/20 03/06/20 History Metoprolol Tartrate [Lopressor] 25 mg PO DAILY 01/29/20 03/06/20 History Montelukast Sodium [Singulair] 10 mg PO HS 01/29/20 03/06/20 History Simvastatin [Zocor] 20 mg PO HS 01/29/20 03/06/20 History Vitamin B Complex 1 each PO DAILY 01/29/20 03/06/20 History traZODone HCL 50 mg PO HS PRN 01/29/20 03/06/20 History Budesonide/Formoterol Fumarate 2 puff INHALATION RT-BID 02/10/20 03/06/20 Hist ory [Symbicort 160-4.5 Mcg Inhaler] Acetaminophen [Tylenol] 325 mg PO DAILY PRN 03/06/20 03/06/20 History Acyclovir [Zovirax] 400 mg PO DAILY 03/06/20 03/06/20 History Fluticasone Propionate [Flonase 1 spray EA NOSTRIL DAILY PRN 03/06/20 03/06/20 History Allergy Relief] Ibuprofen [Motrin Ib] 600 mg PO ONCE PRN 03/06/20 03/06/20 History Multivit-Min/Iron/Folic/Lutein 1 tab PO DAILY 03/06/20 03/06/20 History [Centrum Silver Women Tablet] hydroCHLOROthiazide [Hydrodiuril] 50 mg PO BID 03/06/20 03/06/20 History Allergies Allergy/AdvReac Type Severity Reaction Status Date / Time Penicillins Allergy Unknown Verified 03/06/20 22:07 Childhood Sulfa (Sulfonamide Allergy Unknown Verified 03/06/20 22:07 Antibiotics) Childhood adhesive tape AdvReac Itching Verified 03/06/20 22:07 Surgical - Exam Osteopathic Statement: *. No significant issues noted on an osteopathic structural exam other than those noted in the History and Physical/Consult. Vital Signs Temp Pulse Resp BP Pulse Ox 99.2 F 91 18 161/90 96 03/06/20 20:43 03/06/20 20:43 03/06/20 20:43 03/06/20 20:43 03/06/20 20:43 - General well developed, well nourished, no distress - Neck trachea midline - Abdomen Abdomen: soft, non tender, bowel sounds - Rectum No significant external hemorrhoidal disease. No blood. No masses Results - Labs 03/06/20 21:25 03/06/20 21:25 Abnormal Lab Results - Last 24 Hours (Table) 03/06/20 Range/Units 21:25 Potassium 3.3 L (3.5-5.1) mmol/L Glucose 171 H (74-99) mg/dL ALT 49 H (4-34) U/L Diabetes panel 03/06/20 Range/Units 21:25 Sodium 137 (137-145) mmol/L Potassium 3.3 L (3.5-5.1) mmol/L Chloride 100 (98-107) mmol/L Carbon Dioxide 28 (22-30) mmol/L BUN 14 (7-17) mg/dL Creatinine 0.88 (0.52-1.04) mg/dL Glucose 171 H (74-99) mg/dL Calcium 9.7 (8.4-10.2) mg/dL AST 36 (14-36) U/L ALT 49 H (4-34) U/L Alkaline Phosphatase 64 (38-126) U/L Total Protein 7.7 (6.3-8.2) g/dL Albumin 4.6 (3.5-5.0) g/dL Calcium panel 03/06/20 Range/Units 21:25 Calcium 9.7 (8.4-10.2) mg/dL Albumin 4.6 (3.5-5.0) g/dL Pituitary panel 03/06/20 Range/Units 21:25 Sodium 137 (137-145) mmol/L Potassium 3.3 L (3.5-5.1) mmol/L Chloride 100 (98-107) mmol/L Carbon Dioxide 28 (22-30) mmol/L BUN 14 (7-17) mg/dL Creatinine 0.88 (0.52-1.04) mg/dL Glucose 171 H (74-99) mg/dL Calcium 9.7 (8.4-10.2) mg/dL Adrenal panel 03/06/20 Range/Units 21:25 Sodium 137 (137-145) mmol/L Potassium 3.3 L (3.5-5.1) mmol/L Chloride 100 (98-107) mmol/L Carbon Dioxide 28 (22-30) mmol/L BUN 14 (7-17) mg/dL Creatinine 0.88 (0.52-1.04) mg/dL Glucose 171 H (74-99) mg/dL Calcium 9.7 (8.4-10.2) mg/dL Total Bilirubin 0.3 (0.2-1.3) mg/dL AST 36 (14-36) U/L ALT 49 H (4-34) U/L Alkaline Phosphatase 64 (38-126) U/L Total Protein 7.7 (6.3-8.2) g/dL Albumin 4.6 (3.5-5.0) g/dL Assessment and Plan (1) Rectal bleeding Current Visit: Yes Status: Acute Code(s): K62.5 - HEMORRHAGE OF ANUS AND RECTUM SNOMED Code(s): 69980134 (2) Hemorrhoids Current Visit: Yes Status: Acute Code(s): K64.9 - UNSPECIFIED HEMORRHOIDS SNOMED Code(s): 24871880 Plan: This is likely on the basis of internal hemorrhoids. Recommend she follow up in my office in the internal hemorrhoids can be banded. I'll see any external hemorrhoidal disease as cause. No anemia. Questions were encouraged and answered. She'll be started on a diet. Surgically stable for discharge
--- NOTE | 2020-03-07 13:36 | P.HPIM ---
History of Present Illness H&P Date: 03/07/20 Chief Complaint: Bright red blood per rectum Patient is a pleasant 49-year-old female came into the hospital after having large hematochezia, patient sees Dr. Brower for primary care activity, she is admitted into the hospital with GI on consult and also general surgery Dr. Cornelius arguello, does have a history of internal hemorrhoids for extended period time, on arrival hemodynamic status stable mildly hypertension was noted along with low-grade fever, no globe and was 13.7, Review of Systems All systems: negative Past Medical History Past Medical History: Asthma, Hyperlipidemia, Hypertension Additional Past Medical History / Comment(s): INTERNAL BLEEDING HEMORRHOIDS, hypothyroidism History of Any Multi-Drug Resistant Organisms: None Reported Past Surgical History: No Surgical Hx Reported, Bladder Surgery, Tubal Ligation Additional Past Surgical History / Comment(s): 02/03/20-REDUCTION OF LT LABIAL MINOR. RT VEIN LIGATION. BLADDER SUSPENSION. D & C Past Anesthesia/Blood Transfusion Reactions: Postoperative Nausea & Vomiting (PONV) Past Psychological History: No Psychological Hx Reported Smoking Status: Never smoker Past Alcohol Use History: None Reported Additional Past Alcohol Use History / Comment(s): SMOKED FOR ABOUT 6 MONTHS A TEEN Past Drug Use History: None Reported - Past Family History Mother Family Medical History: No Reported History Medications and Allergies Home Medications Medication Instructions Recorded Confirmed Type Albuterol Inhaler [Ventolin Hfa 2 puff INHALATION RT-QID PRN 01/29/20 03/06/20 History Inhaler] Cetirizine HCl [Zyrtec] 10 mg PO DAILY 01/29/20 03/06/20 History Cholecalciferol [Vitamin D3 (25 1,000 unit PO DAILY 01/29/20 03/06/20 History Mcg = 1000 Iu)] Levothyroxine Sodium [Tirosint] 88 mcg PO DAILY 01/29/20 03/06/20 History Metoprolol Tartrate [Lopressor] 25 mg PO DAILY 01/29/20 03/06/20 History Montelukast Sodium [Singulair] 10 mg PO HS 01/29/20 03/06/20 History Simvastatin [Zocor] 20 mg PO HS 01/29/20 03/06/20 History Vitamin B Complex 1 each PO DAILY 01/29/20 03/06/20 History traZODone HCL 50 mg PO HS PRN 01/29/20 03/06/20 History Budesonide/Formoterol Fumarate 2 puff INHALATION RT-BID 02/10/20 03/06/20 History [Symbicort 160-4.5 Mcg Inhaler] Acetaminophen [Tylenol] 325 mg PO DAILY PRN 03/06/20 03/06/20 History Acyclovir [Zovirax] 400 mg PO DAILY 03/06/20 03/06/20 History Fluticasone Propionate [Flonase 1 spray EA NOSTRIL DAILY PRN 03/06/20 03/06/20 History Allergy Relief] Ibuprofen [Motrin Ib] 600 mg PO ONCE PRN 03/06/20 03/06/20 History Multivit-Min/Iron/Folic/Lutein 1 tab PO DAILY 03/06/20 03/06/20 History [Centrum Silver Women Tablet] hydroCHLOROthiazide [Hydrodiuril] 50 mg PO BID 03/06/20 03/06/20 History Allergies Allergy/AdvReac Type Severity Reaction Status Date / Time Penicillins Allergy Unknown Verified 03/06/20 22:07 Childhood Sulfa (Sulfonamide Allergy Unknown Verified 03/06/20 22:07 Antibiotics) Childhood adhesive tape AdvReac Itching Verified 03/06/20 22:07 Physical Exam Vitals: Vital Signs Temp Pulse Pulse Resp BP BP Pulse Ox 03/07/20 08:05 96.5 F L 67 16 138/78 100 03/07/20 02:55 98.0 F 75 16 116/81 97 03/07/20 02:36 88 18 03/06/20 22:58 98.1 F 88 18 144/87 95 03/06/20 22:40 99.2 F 88 18 131/84 97 03/06/20 22:30 88 18 131/84 97 03/06/20 20:43 99.2 F 91 18 161/90 96 Intake and Output 03/06/20 03/07/20 03/07/20 22:59 06:59 14:59 Other: Voiding Method Toilet # Voids 1 2 Weight 95.254 kg - Constitutional General appearance: average body habitus, cooperative - EENT Eyes: PERRLA ENT: normal oropharynx Ears: bilateral: normal - Neck Neck: normal ROM Carotids: bilateral: upstroke normal Thyroid: bilateral: normal size - Respiratory Respiratory: bilateral: CTA - Cardiovascular Rhythm: regular Heart sounds: normal: S1, S2 - Integumentary Integumentary: normal turgor - Neurologic Neurologic: CNII-XII intact - Musculoskeletal Musculoskeletal: gait normal, strength equal bilaterally - Psychiatric Psychiatric: A&O x's 3, appropriate affect, intact judgment & insight Results CBC & Chem 7: 03/06/20 21:25 03/06/20 21:25 Labs: Abnormal Lab Results - Last 24 Hours (Table) 03/06/20 Range/Units 21:25 Potassium 3.3 L (3.5-5.1) mmol/L Glucose 171 H (74-99) mg/dL ALT 49 H (4-34) U/L Thrombosis Risk Factor Assmnt - Choose All That Apply Each Factor Represents 1 point: Age 41-60 years, Obesity (BMI >25) Other Risk Factors: No Other congenital or acquired thrombophilia - If yes, enter type in comment: No Thrombosis Risk Factor Assessment Total Risk Factor Score: 2 Thrombosis Risk Factor Assessment Level: Low Risk Assessment and Plan Assessment: Lower GI bleed secondary due to hemorrhoids internal Major depression Dyslipidemia Hypertension hypertensive cardiovascular disease Hypothyroidism Bronchial asthma Mild hypokalemia Chronic seasonal ALLERGIES Plan: Admitted into hospital for observation GI and general surgery consult Gentle rehydration further recommendations pending as per general surgery and GI Replace per day she was per protocol Time with Patient: Greater than 30
--- NOTE | 2020-03-07 13:42 | P.DS ---
Providers Date of admission: 03/06/20 21:54 Expected date of discharge: 03/07/20 Attending physician: Martell Alfredo Consults: 03/06/20 21:54 Consult Physician Routine Consulting Provider: Mago Hagan Consult Reason/Comments: hemorrhiodectomy Do you want consulting provider notified?: Yes Consult Physician Routine Consulting Provider: Yunior Whyte Consult Reason/Comments: known Do you want consulting provider notified?: Yes Primary care physician: [facility] Course: 03/07/2019, patient seen eval examined during the rounds labs reviewed medications reviewed, patient denies any symptoms, patient has been eval or by general surgery is scheduled for operative procedure for internal hemorrhoids as outpatient likely internal bending, stable for discharge, nothing by mouth status has been discontinued patient to start regular diet and nutrients high in potassium Patient is a pleasant 49-year-old female came into the hospital after having large hematochezia, patient sees Dr. Brower for primary care activity, she is admitted into the hospital with GI on consult and also general surgery Dr. Hagan, does have a history of internal hemorrhoids for extended period time, on arrival hemodynamic status stable mildly hypertension was noted along with low-grade fever, no globe and was 13.7, Assessment: Lower GI bleed secondary due to hemorrhoids internal Major depression Dyslipidemia Hypertension hypertensive cardiovascular disease Hypothyroidism Bronchial asthma Mild hypokalemia Chronic seasonal ALLERGIES Patient Condition at Discharge: Good Plan - Discharge Summary Discharge Rx Participant: No New Discharge Prescriptions: New polyethylene glycoL 3350 [Miralax] 17 gm PO DAILY powd.pack Continue Cholecalciferol [Vitamin D3 (25 Mcg = 1000 Iu)] 1,000 unit PO DAILY traZODone HCL 50 mg PO HS PRN PRN Reason: sleeping Simvastatin [Zocor] 20 mg PO HS Metoprolol Tartrate [Lopressor] 25 mg PO DAILY Albuterol Inhaler [Ventolin Hfa Inhaler] 2 puff INHALATION RT-QID PRN PRN Reason: Dyspnea Montelukast Sodium [Singulair] 10 mg PO HS Cetirizine HCl [Zyrtec] 10 mg PO DAILY Vitamin B Complex 1 each PO DAILY Levothyroxine Sodium [Tirosint] 88 mcg PO DAILY Budesonide/Formoterol Fumarate [Symbicort 160-4.5 Mcg Inhaler] 2 puff INHALATION RT-BID Multivit-Min/Iron/Folic/Lutein [Centrum Silver Women Tablet] 1 tab PO DAILY Acetaminophen [Tylenol] 325 mg PO DAILY PRN PRN Reason: Headache hydroCHLOROthiazide [Hydrodiuril] 50 mg PO BID Ibuprofen [Motrin Ib] 600 mg PO ONCE PRN PRN Reason: Pain Acyclovir [Zovirax] 400 mg PO DAILY Fluticasone Propionate [Flonase Allergy Relief] 1 spray EA NOSTRIL DAILY PRN PRN Reason: allergies Discharge Medication List Albuterol Inhaler [Ventolin Hfa Inhaler] 2 puff INHALATION RT-QID PRN 01/29/20 [History] Cetirizine HCl [Zyrtec] 10 mg PO DAILY 01/29/20 [History] Cholecalciferol [Vitamin D3 (25 Mcg = 1000 Iu)] 1,000 unit PO DAILY 01/29/20 [History] Levothyroxine Sodium [Tirosint] 88 mcg PO DAILY 01/29/20 [History] Metoprolol Tartrate [Lopressor] 25 mg PO DAILY 01/29/20 [History] Montelukast Sodium [Singulair] 10 mg PO HS 01/29/20 [History] Simvastatin [Zocor] 20 mg PO HS 01/29/20 [History] Vitamin B Complex 1 each PO DAILY 01/29/20 [History] traZODone HCL 50 mg PO HS PRN 01/29/20 [History] Budesonide/Formoterol Fumarate [Symbicort 160-4.5 Mcg Inhaler] 2 puff INHALATION RT-BID 02/10/20 [History] Acetaminophen [Tylenol] 325 mg PO DAILY PRN 03/06/20 [History] Acyclovir [Zovirax] 400 mg PO DAILY 03/06/20 [History] Fluticasone Propionate [Flonase Allergy Relief] 1 spray EA NOSTRIL DAILY PRN 03/06/20 [History] Ibuprofen [Motrin Ib] 600 mg PO ONCE PRN 03/06/20 [History] Multivit-Min/Iron/Folic/Lutein [Centrum Silver Women Tablet] 1 tab PO DAILY 03/06/20 [History] hydroCHLOROthiazide [Hydrodiuril] 50 mg PO BID 03/06/20 [History] polyethylene glycoL 3350 [Miralax] 17 gm PO DAILY powd.pack 03/07/20 [Rx] Follow up Appointment(s)/Referral(s): Harpal Ortiz MD [Primary Care Provider] - 1-2 days Discharge Disposition: HOME SELF-CARE
--- NOTE | 2020-03-07 17:38 | P.CONS ---
History of Present Illness - Reason for Consult Consult date: 03/07/20 Hematochezia Requesting physician: Martell Alfredo - Chief Complaint Rectal bleeding - History of Present Illness 49-year-old female with a medical history significant for hypothyroidism, hyperlipidemia, and hypertension who presented to the hospital due to concerns of blood per rectum. The patient reports a large amount of painless bright red blood per rectum. She recently underwent colonoscopy on 02/12/2020 with a normal examination at that time. She denies any abdominal pain, nausea or vomiting. Hemoglobin was stable at 13.7 on presentation with WBC 7.1, platelet count 250,000, total bilirubin 0.3, alkaline phosphatase 64, AST 36 and ALTs 49. Review of Systems REVIEW OF SYSTEMS: CONSTITUTIONAL: Denies any fevers, chills, weight change or fatigue. CARDIOVASCULAR: Denies any chest pain, palpitations high or low blood pressures RESPIRATORY: Denies any shortness of breath, hemoptysis or cough. GENITOURINARY: No dysuria or hematuria. MUSCULOSKELETAL: No weakness reported. SKIN: Denies any new rashes or lesions, jaundice or pallor. PSYCHIATRIC: Denies any depression or anxiety. NEUROLOGY: Denies headache, denies any new focal deficits. EARS/NOSE/THROAT: No recent hearing change, congestion, nasal discharge or sore throat. EYES: No pain in eyes, discharge or change in vision. GASTROINTESTINAL: As per HPI. Past Medical History Past Medical History: Asthma, Hyperlipidemia, Hypertension Additional Past Medical History / Comment(s): INTERNAL BLEEDING HEMORRHOIDS, hypothyroidism History of Any Multi-Drug Resistant Organisms: None Reported Past Surgical History: No Surgical Hx Reported, Bladder Surgery, Tubal Ligation Additional Past Surgical History / Comment(s): 02/03/20-REDUCTION OF LT LABIAL MINOR. RT VEIN LIGATION. BLADDER SUSPENSION. D & C Past Anesthesia/Blood Transfusion Reactions: Postoperative Nausea & Vomiting (PONV) Past Psychological History: No Psychological Hx Reported Smoking Status: Never smoker Past Alcohol Use History: None Reported Additional Past Alcohol Use History / Comment(s): SMOKED FOR ABOUT 6 MONTHS A TEEN Past Drug Use History: None Reported - Past Family History Mother Family Medical History: No Reported History Medications and Allergies Home Medications Medication Instructions Recorded Confirmed Type Albuterol Inhaler [Ventolin Hfa 2 puff INHALATION RT-QID PRN 01/29/20 03/06/20 History Inhaler] Cetirizine HCl [Zyrtec] 10 mg PO DAILY 01/29/20 03/06/20 History Cholecalciferol [Vitamin D3 (25 1,000 unit PO DAILY 01/29/20 03/06/20 History Mcg = 1000 Iu)] Levothyroxine Sodium [Tirosint] 88 mcg PO DAILY 01/29/20 03/06/20 History Metoprolol Tartrate [Lopressor] 25 mg PO DAILY 01/29/20 03/06/20 History Montelukast Sodium [Singulair] 10 mg PO HS 01/29/20 03/06/20 History Simvastatin [Zocor] 20 mg PO HS 01/29/20 03/06/20 History Vitamin B Complex 1 each PO DAILY 01/29/20 03/06/20 History traZODone HCL 50 mg PO HS PRN 01/29/20 03/06/20 History Budesonide/Formoterol Fumarate 2 puff INHALATION RT-BID 02/10/20 03/06/20 History [Symbicort 160-4.5 Mcg Inhaler] Acetaminophen [Tylenol] 325 mg PO DAILY PRN 03/06/20 03/06/20 History Acyclovir [Zovirax] 400 mg PO DAILY 03/06/20 03/06/20 History Fluticasone Propionate [Flonase 1 spray EA NOSTRIL DAILY PRN 03/06/20 03/06/20 History Allergy Relief] Ibuprofen [Motrin Ib] 600 mg PO ONCE PRN 03/06/20 03/06/20 History Multivit-Min/Iron/Folic/Lutein 1 tab PO DAILY 03/06/20 03/06/20 History [Centrum Silver Women Tablet] hydroCHLOROthiazide [Hydrodiuril] 50 mg PO BID 03/06/20 03/06/20 History polyethylene glycoL 3350 [Miralax] 17 gm PO DAILY powd.pack 03/07/20 Rx Allergies Allergy/AdvReac Type Severity Reaction Status Date / Time Penicillins Allergy Unknown Verified 03/06/20 22:07 Childhood Sulfa (Sulfonamide Allergy Unknown Verified 03/06/20 22:07 Antibiotics) Childhood adhesive tape AdvReac Itching Verified 03/06/20 22:07 Physical Exam Vitals: Vital Signs Temp Pulse Pulse Resp BP BP Pulse Ox 03/07/20 08:05 96.5 F L 67 16 138/78 100 03/07/20 02:55 98.0 F 75 16 116/81 97 03/07/20 02:36 88 18 03/06/20 22:58 98.1 F 88 18 144/87 95 03/06/20 22:40 99.2 F 88 18 131/84 97 03/06/20 22:30 88 18 131/84 97 03/06/20 20:43 99.2 F 91 18 161/90 96 Intake and Output 03/06/20 03/07/20 03/07/20 22:59 06:59 14:59 Other: Voiding Method Toilet # Voids 1 2 Weight 95.254 kg On physical examination, patient appears comfortable in no apparent distress. HEAD: Normocephalic, atraumatic. EYES: No scleral icterus. No conjunctival injection. MOUTH: No lesions, tongue midline. NECK: Trachea midline, no gross abnormalities. CHEST: Clear to auscultation with no wheezing or rhonchi appreciated. HEART: Regular rate and rhythm. ABDOMEN: Soft, nontender to palpation. Bowel sounds are positive. No organomegaly. No guarding or rigidity. EXTREMITIES: No pedal edema. SKIN: No rashes, no jaundice. NEUROLOGIC: Alert and oriented x3. No focal deficits. Results CBC & Chem 7: 03/06/20 21:25 03/06/20 21:25 Labs: Abnormal Lab Results - Last 24 Hours (Table) 03/06/20 Range/Units 21:25 Potassium 3.3 L (3.5-5.1) mmol/L Glucose 171 H (74-99) mg/dL ALT 49 H (4-34) U/L Assessment and Plan (1) Lower gastrointestinal hemorrhage Narrative/Plan: 49-year-old female presented to the hospital with complaints of painless red blood per rectum. She reports large amount of blood in the toilet. She denies any abdominal pain or cramping. Hemoglobin was found to be stable at 13.7 on presentation. Recent colonoscopy on 02/08/2020 which was within normal limits with no abnormal findings noted. She does report problems with hemorrhoids in the past. She is been seen by the digital service with plan for outpatient follow-up for possible banding of internal hemorrhoids. Status: Acute Code(s): K92.2 - GASTROINTESTINAL HEMORRHAGE, UNSPECIFIED SNOMED Code(s): 02650786 (2) Rectal bleeding Status: Acute Code(s): K62.5 - HEMORRHAGE OF ANUS AND RECTUM SNOMED Code(s): 52914762 Plan: Supportive care Okay for diet as tolerated Appreciate recommendations from surgical service Local hemorrhoidal care discussed with the patient including warm sitz baths, Tucks pads, stool softeners and topical steroid therapy No plans for further endoscopic evaluation at this time Thank you for allowing us to participate in the care of the patient
[2020-03-07] MEDS ORDERED: SYMBICORT 160-4.5 MCG INHALER INHALATION SCH (20:00)
[2020-03-07] MEDS ORDERED: MONTELUKAST 10 MG TAB PO SCH (21:00)
[2020-03-07] MEDS ORDERED: ATORVASTATIN 10 MG TAB PO SCH (21:00)
== END 2020-03-07 14:16 | disposition home or self-care (01) ==
LOC: EC 20:32 → 1SOBS 21:54
PROVIDERS: ADMIT Internal Medicine Sleep Medicine; ATTEND Internal Medicine Sleep Medicine
DX: K64.8 Other hemorrhoids (principal); R50.9 Fever, unspecified; F32.9 Major depressive disorder, single episode, unspecified; E78.5 Hyperlipidemia, unspecified; J45.909 Unspecified asthma, uncomplicated; I11.9 Hypertensive heart disease without heart failure; E03.9 Hypothyroidism, unspecified; E87.6 Hypokalemia; E66.9 Obesity, unspecified; Z79.899 Other long term (current) drug therapy; Z79.51 Long term (current) use of inhaled steroids; Z88.0 Allergy status to penicillin; Z88.2 Allergy status to sulfonamides; Z91.09 Other allergy status, other than to drugs and biological substances; Z98.890 Other specified postprocedural states; Z79.890 Hormone replacement therapy; Z98.51 Tubal ligation status; Z91.89 Other specified personal risk factors, not elsewhere classified; Z87.891 Personal history of nicotine dependence; Z68.34 Body mass index [BMI] 34.0-34.9, adult
CPT/HCPCS: 99285; 36415; 86900; 86901; 80053; 82550; 83605; 83735; 84484; 85025; 85610; 85730; 86850; G0378 ×2

== ENCOUNTER → 2020-06-16 | Outpatient (CLI) | payer BC ==
[2020-06-16 15:22] LABS: HGB 11.6 g/dL (12.0-15.0); MCHC 30.5 g/dL (32.0-37.0); MCV 78.7 fL (80.0-97.0); Mean Platelet Volume 11.4 fL (9.5-12.2); Platelet Count 254 X 10*3/uL (140-440); RBC 4.83 X 10*6/uL (4.10-5.20); RDW 16.4 % (11.5-14.5); WBC 6.13 X 10*3/uL (4.50-10.00)
[2020-06-16 19:23] LABS: African American GFR (CKD) 86.4 (60.0-200.0); Albumin 4.6 g/dL (3.80-4.90); BUN/Creat Ratio 18.89 Ratio (12.00-20.00); Calcium 9.9 mg/dL (8.7-10.3); Chol/HDL Ratio 3.72; Globulin 2.3 g/dL (1.6-3.3); LDL Cholesterol,Calculated 109.8 mg/dL (0.0-131.0); Non-African American GFR(CKD) 74.6 (60.0-200.0); Potassium 3.7 mmol/L (3.5-5.5); Total Bilirubin 0.4 mg/dL (0.2-1.2); Total Protein 6.9 g/dL (6.2-8.2); VLDL Calculation 26.2 mg/dL (5.00-40.00)
== END | disposition home or self-care (01) ==
LOC: LABWHC1 09:12
PROVIDERS: ATTEND Family Medicine
DX: E78.2 Mixed hyperlipidemia (principal); I10 Essential (primary) hypertension
CPT/HCPCS: 36415; 80053; 80061; 85027

== ENCOUNTER → 2020-10-01 | Outpatient (CLI) | payer BC ==
--- NOTE | 2020-10-01 14:38 | XR ---
EXAMINATION TYPE: XR elbow complete LT DATE OF EXAM: 10/01/2020 COMPARISON: NONE HISTORY: Pain FINDINGS: Three views of the elbow demonstrate no pathologic joint effusion. The osseous structures are intact . There is no acute fracture or dislocation. IMPRESSION: 1. No acute fracture or dislocation. If symptoms persist follow-up study in 7 to 10 days could be ob tained.
== END | disposition home or self-care (01) ==
LOC: RADXRMAIN 14:03
PROVIDERS: ATTEND Physician Assistant
DX: M25.522 Pain in left elbow (principal)

== ENCOUNTER → 2020-12-18 | Outpatient (CLI) | payer BC ==
[2020-12-18 19:31] LABS: HCT 41.7 % (37.2-46.3); HGB 13.9 g/dL (12.0-15.0); MCH 28.7 pg (27.0-32.0); MCHC 33.3 g/dL (32.0-37.0); MCV 86.2 fL (80.0-97.0); Mean Platelet Volume 11.7 fL (9.5-12.2); Platelet Count 197 X 10*3/uL (140-440); RBC 4.84 X 10*6/uL (4.10-5.20); RDW 13.9 % (11.5-14.5); WBC 4.76 X 10*3/uL (4.50-10.00)
[2020-12-18 21:17] LABS: African American GFR (CKD) 93.1 (60.0-200.0); Albumin 4.4 g/dL (3.8-4.9); Albumin/Globulin Ratio 1.71 (1.60-3.17); Anion Gap 15.5 mmol/L (4.00-12.00); BUN/Creat Ratio 19.62 Ratio (12.00-20.00); Blood Urea Nitrogen 16.5 mg/dL (9.0-27.0); Calcium 9.8 mg/dL (8.7-10.3); Carbon Dioxide 27.8 mmol/L (21.6-31.8); Chol/HDL Ratio 3.38 Ratio; Globulin 2.6 g/dL (1.6-3.3); HDL Cholesterol 58.3 mg/dL (40.00-60.00); LDL Cholesterol,Calculated 113.9 mg/dL (0.0-131.0); Non-African American GFR(CKD) 80.4 (60.0-200.0); Potassium 3.7 mmol/L (3.5-5.5); T4, Free (Free Thyroxine) 1.92 ng/dL (0.800-1.800); Total Bilirubin 0.5 mg/dL (0.30-1.20); VLDL Calculation 24.8 mg/dL (5.00-40.00)
== END | disposition home or self-care (01) ==
LOC: LABWHC1 11:31
PROVIDERS: ATTEND Family Medicine
DX: Z00.01 Encounter for general adult medical examination with abnormal findings (principal); E03.9 Hypothyroidism, unspecified
CPT/HCPCS: 36415; 80053; 80061; 84439; 84443; 84481; 85027

== ENCOUNTER → 2021-01-05 | Outpatient (CLI) | payer BC, OTHER | END | disposition home or self-care (01) | LOC: LABWHC1 09:07 | PROVIDERS: ATTEND Emergency Medicine | DX: U07.1 COVID-19 (principal) | CPT/HCPCS: 87635 ==

== ENCOUNTER → 2021-02-10 | Outpatient (CLI) | payer BC ==
[2021-02-10 20:36] LABS: T4, Free (Free Thyroxine) 1.34 ng/dL (0.800-1.800)
== END | disposition home or self-care (01) ==
LOC: LABWHC1 12:13
PROVIDERS: ATTEND Family Medicine
DX: E03.9 Hypothyroidism, unspecified (principal)
CPT/HCPCS: 36415; 84439; 84443; 84481

== ENCOUNTER → 2021-03-02 | Outpatient (CLI) | payer BC ==
--- NOTE | 2021-03-04 14:14 | MM ---
Reason for exam: screening (asymptomatic). Last mammogram was performed 1 year and 1 month ago. Physical Findings: A clinical breast exam by your physician is recommended on an annual basis and results should be correlated with mammographic findings. MG 3D Screening Mammo W/Cad Bilateral CC and MLO view(s) were taken. Prior study comparison: January 29, 2020, bilateral MG 3d screening mammo w/cad. December 05, 2018, bilateral MG 3d screening mammo w/cad. There are scattered fibroglandular densities. No significant changes when compared with prior studies. ASSESSMENT: Benign, BI-RAD 2 RECOMMENDATION: Routine screening mammogram of both breasts in 1 year.
== END | disposition home or self-care (01) ==
LOC: RADMAMWWP 07:04
PROVIDERS: ATTEND Obstetrics & Gynecology
DX: Z12.31 Encounter for screening mammogram for malignant neoplasm of breast (principal)
CPT/HCPCS: 77063; 77067

== ENCOUNTER → 2022-01-05 | Outpatient (CLI) | payer BC ==
[2022-01-05 18:15] LABS: Basophils # (A) 0.02 X 10*3/uL (0.00-0.10); Basophils % (A) 0.3 %; Eosinophils # (A) 0.14 X 10*3/uL (0.04-0.35); Eosinophils % (A) 2.3 %; HCT 42.8 % (37.2-46.3); HGB 14.9 g/dL (12.0-15.0); Immature Grans, Automated 0.2 %; Lymphocytes # (A) 1.95 X 10*3/uL (0.90-5.00); Lymphocytes % (A) 31.6 %; MCH 31.1 pg (27.0-32.0); MCHC 34.8 g/dL (32.0-37.0); MCV 89.4 fL (80.0-97.0); Mean Platelet Volume 10.8 fL (9.5-12.2); Monocytes # (A) 0.46 X 10*3/uL (0.20-1.00); Monocytes % (A) 7.4 %; NRBC Per 100 WBC 0 /100 WBCS (0.0-0.0); Neutrophils % (A) 58.2 %; Platelet Count 202 X 10*3/uL (140-440); RBC 4.79 X 10*6/uL (4.10-5.20); RDW 12.8 % (11.5-14.5); WBC 6.18 X 10*3/uL (4.50-10.00)
[2022-01-05 18:37] LABS: ALT 56 U/L (8-44); AST 34 U/L (13-35); African American GFR (CKD) 89.1 (60.0-200.0); Albumin 4.7 g/dL (3.8-4.9); Alkaline Phosphatase 66 U/L (41-126); BUN/Creat Ratio 22.15 Ratio (12.00-20.00); Blood Urea Nitrogen 19.2 mg/dL (9.0-27.0); Calcium 9.9 mg/dL (8.7-10.3); Carbon Dioxide 29.1 mmol/L (20.0-27.5); Chloride 98 mmol/L (96-109); Chol/HDL Ratio 3.83 Ratio; Globulin 2.7 g/dL (1.6-3.3); Glucose 101 mg/dL (70-110); Non-African American GFR(CKD) 76.9 (60.0-200.0); Potassium 3.5 mmol/L (3.5-5.5); Sodium 139 mmol/L (135-145); Total Protein 7.4 g/dL (6.2-8.2)
== END | disposition home or self-care (01) ==
LOC: LABWHC1 10:29
PROVIDERS: ATTEND Family Medicine
DX: Z00.01 Encounter for general adult medical examination with abnormal findings (principal); E03.9 Hypothyroidism, unspecified
CPT/HCPCS: 36415; 80053; 80061; 84439; 84443; 84481; 85025

== ENCOUNTER → 2023-01-19 | Outpatient (CLI) | payer BC ==
[2023-01-19 16:12] LABS: Basophils # (A) 0.04 X 10*3/uL (0.00-0.10); Basophils % (A) 0.6 %; Eosinophils # (A) 0.22 X 10*3/uL (0.04-0.35); Eosinophils % (A) 3.3 %; HCT 43.6 % (37.2-46.3); HGB 15.1 g/dL (12.0-15.0); Lymphocytes # (A) 2.02 X 10*3/uL (0.90-5.00); Lymphocytes % (A) 30.2 %; MCH 31.3 pg (27.0-32.0); MCHC 34.6 g/dL (32.0-37.0); MCV 90.5 FL (80.0-97.0); Mean Platelet Volume 10.7 FL (9.5-12.2); Monocytes # (A) 0.51 X 10*3/uL (0.20-1.00); Monocytes % (A) 7.6 %; NRBC Per 100 WBC 0 X 10*3/uL (0.00-0.01); Neutrophils # (A) 3.88 X 10*3/uL (1.80-7.70); Platelet Count 203 X 10*3/uL (140-440); RBC 4.82 X 10*6/uL (4.10-5.20); WBC 6.69 X 10*3/uL (4.50-10.00)
[2023-01-19 16:40] LABS: ALT 65 U/L (8-44); AST 35 U/L (13-35); Albumin 4.5 g/dL (3.8-4.9); Albumin/Globulin Ratio 1.67 Ratio (1.60-3.17); Alkaline Phosphatase 60 U/L (41-126); BUN/Creat Ratio 16.89 Ratio (12.00-20.00); Blood Urea Nitrogen 15.2 mg/dL (9.0-27.0); Calcium 10.2 mg/dL (8.7-10.3); Carbon Dioxide 30.9 mmol/L (21.6-31.8); Chloride 98 mmol/L (96-109); Chol/HDL Ratio 4.33 Ratio; Globulin 2.7 g/dL (1.6-3.3); Glucose 112 mg/dL (70-110); LDL Cholesterol,Calculated 139.3 mg/dL (0.0-131.0); Potassium 4.1 mmol/L (3.5-5.5); Sodium 140 mmol/L (135-145); Total Bilirubin 0.4 mg/dL (0.3-1.2); Total Protein 7.2 g/dL (6.2-8.2)
== END | disposition home or self-care (01) ==
LOC: LABWHC1 08:09
PROVIDERS: ATTEND Family Medicine
DX: Z00.01 Encounter for general adult medical examination with abnormal findings (principal)
CPT/HCPCS: 36415; 80053; 80061; 84443; 84481; 85025

== ENCOUNTER → 2023-04-13 | Outpatient (CLI) | payer BC ==
--- NOTE | 2023-04-14 12:26 | MM ---
Reason for Exam: Screening (asymptomatic). Last screening mammogram was performed 12 month(s) ago. Patient History: Menarche at age 12. First Full-Term at age 23. Postmenopausal. Patient has history of breast feeding. Risk Values: Moira 5 year model risk: 1.0%. NCI Lifetime model risk: 7.7%. Prior Study Comparison: 11/11/2016 Bilateral Screening Mammogram, [facility]. 11/16/2017 Bilateral Screening Mammogram, [facility]. 12/05/2018 Bilateral Screening Mammogram, [facility]. 01/29/2020 Bilateral Screening Mammogram, [facility]. 03/02/2021 Bilateral Screening Mammogram, [facility]. 04/08/2022 Bilateral MG 3D screening mammo w/cad, [facility]. Tissue Density: The breast tissue is heterogeneously dense. This may lower the sensitivity of mammography. Findings: Analyzed By CAD. There is no suspicious group of microcalcifications or new suspicious mass in either breast. Benign-appearing calcifications. Overall Assessment: Benign, BI-RAD 2 Management: Screening Mammogram of both breasts in 1 year. . Patient should continue monthly self-breast exams. A clinical breast exam by your physician is recommended on an annual basis. This exam should not preclude additional follow-up of suspicious palpable abnormalities. Note on Moira scores and lifetime risk: 1. A Moira score greater than 3% is considered moderate risk. If this is the case, consider specialist referral to assess eligibility for a risk reducing agent. 2. If overall lifetime risk for the development of breast cancer is 20% or higher, the patient may qualify for future screening with alternating mammogram and breast MRI. Electronically signed and approved by: Sudarshan Barnes M.D. Radiologis
== END | disposition home or self-care (01) ==
LOC: RADMAMWWP 10:06
PROVIDERS: ATTEND Obstetrics & Gynecology
DX: Z12.31 Encounter for screening mammogram for malignant neoplasm of breast (principal); Z78.0 Asymptomatic menopausal state
CPT/HCPCS: 77063; 77067

== ENCOUNTER → 2023-07-27 | Outpatient (CLI) | payer BC ==
[2023-07-27 15:14] LABS: ALT 28 U/L (8-44); AST 21 U/L (13-35); Albumin 4.7 g/dL (3.8-4.9); Albumin/Globulin Ratio 2.04 Ratio (1.60-3.17); Alkaline Phosphatase 61 U/L (41-126); BUN/Creat Ratio 22.56 Ratio (12.00-20.00); Blood Urea Nitrogen 20.3 mg/dL (9.0-27.0); Calcium 10.2 mg/dL (8.7-10.3); Carbon Dioxide 31.8 mmol/L (21.6-31.8); Chloride 100 mmol/L (96-109); Chol/HDL Ratio 4.23 Ratio; Globulin 2.3 g/dL (1.6-3.3); Glucose 104 mg/dL (70-110); LDL Cholesterol,Calculated 170.2 mg/dL (0.0-131.0); Potassium 3.4 mmol/L (3.5-5.5); Sodium 141 mmol/L (135-145); Total Bilirubin 0.5 mg/dL (0.3-1.2)
== END | disposition home or self-care (01) ==
LOC: LABWHC1 09:17
PROVIDERS: ATTEND Family Medicine
DX: I10 Essential (primary) hypertension (principal); E78.2 Mixed hyperlipidemia
CPT/HCPCS: 36415; 80053; 80061

== ENCOUNTER → 2024-01-29 | Outpatient (CLI) | payer BC ==
[2024-01-29 16:32] LABS: ALT 25 U/L (8-44); AST 19 U/L (13-35); Albumin 4.4 g/dL (3.8-4.9); Albumin/Globulin Ratio 1.76 Ratio (1.60-3.17); Alkaline Phosphatase 60 U/L (41-126); Blood Urea Nitrogen 16.8 mg/dL (9.0-27.0); Calcium 9.8 mg/dL (8.7-10.3); Chloride 102 mmol/L (96-109); Chol/HDL Ratio 4.06 Ratio; Globulin 2.5 g/dL (1.6-3.3); Glucose 96 mg/dL (70-110); LDL Cholesterol,Calculated 140.9 mg/dL (0.0-131.0); Potassium 3.6 mmol/L (3.5-5.5); Sodium 143 mmol/L (135-145); T4, Free (Free Thyroxine) 1.37 ng/dL (0.80-1.80); Total Bilirubin 0.4 mg/dL (0.3-1.2); Total Protein 6.9 g/dL (6.2-8.2)
== END | disposition home or self-care (01) ==
LOC: LABWHC1 10:10
PROVIDERS: ATTEND Family Medicine
DX: Z00.01 Encounter for general adult medical examination with abnormal findings (principal); E03.9 Hypothyroidism, unspecified
CPT/HCPCS: 36415; 80053; 80061; 84439; 84443; 84481

== ENCOUNTER 2024-05-06 08:59 | Emergency (ER) | payer BC ==
[2024-05-06 09:28] VITALS: TEMP 98
--- NOTE | 2024-05-06 10:15 | ED ---
Female Urogenital HPI - General Chief complaint: Vaginal Bleeding Stated complaint: vaginal bleeding Time Seen by Provider: 05/06/24 09:11 Source: patient, RN notes reviewed Mode of arrival: ambulatory Limitations: no limitations - History of Present Illness Initial comments: 53-year-old female presents emergency department with chief complaint of vaginal bleeding. Patient states she has had bleeding last 4 to 5 days. Patient states she had issues like this last year and had endometrial biopsy by her EDUCATION PROGRAM SPECIALIST showing no acute issues. Patient states that they just told her to monitor symptoms if they worsen or return should need further workup. She states over the last several days she started with some spotting but states it is more almost a period like bleeding. She denies any pain no lightheadedness no back pain no flank pain no urinary symptoms. - Related Data Home Medications Medication Instructions Recorded Confirmed Albuterol Inhaler [Ventolin Hfa 2 puff INHALATION RT-QID PRN 01/29/20 03/06/20 Inhaler] Cetirizine HCl [Zyrtec] 10 mg PO DAILY 01/29/20 03/06/20 Cholecalciferol [Vitamin D3 (25 1,000 unit PO DAILY 01/29/20 03/06/20 Mcg = 1000 Iu)] Levothyroxine Sodium [Tirosint] 88 mcg PO DAILY 01/29/20 03/06/20 Metoprolol Tartrate [Lopressor] 25 mg PO DAILY 01/29/20 03/06/20 Montelukast Sodium [Singulair] 10 mg PO HS 01/29/20 03/06/20 Simvastatin [Zocor] 20 mg PO HS 01/29/20 03/06/20 Vitamin B Complex 1 each PO DAILY 01/29/20 03/06/20 traZODone HCL 50 mg PO HS PRN 01/29/20 03/06/20 Budesonide/Formoterol Fumarate 2 puff INHALATION RT-BID 02/10/20 03/06/20 [Symbicort 160-4.5 Mcg Inhaler] Acetaminophen [Tylenol] 325 mg PO DAILY PRN 03/06/20 03/06/20 Acyclovir [Zovirax] 400 mg PO DAILY 03/06/20 03/06/20 Fluticasone Propionate [Flonase 1 spray EA NOSTRIL DAILY PRN 03/06/20 03/06/20 Allergy Relief] Ibuprofen [Motrin Ib] 600 mg PO ONCE PRN 03/06/20 03/06/20 Multivit-Min/Iron/Folic/Lutein 1 tab PO DAILY 03/06/20 03/06/20 [Centrum Silver Women Tablet] hydroCHLOROthiazide [Hydrodiuril] 50 mg PO BID 03/06/20 03/06/20 Previous Rx's Medication Instructions Recorded polyethylene glycoL 3350 [Miralax] 17 gm PO DAILY powd.pack 03/07/20 Allergies Allergy/AdvReac Type Severity Reaction Status Date / Time Penicillins Allergy Unknown Verified 05/06/24 09:28 Childhood Sulfa (Sulfonamide Allergy Unknown Verified 05/06/24 09:28 Antibiotics) Childhood adhesive tape AdvReac Itching Verified 05/06/24 09:28 Review of Systems ROS Statement: Those systems with pertinent positive or pertinent negative responses have been documented in the HPI. ROS Other: All systems not noted in ROS Statement are negative. Past Medical History Past Medical History: Asthma, Hyperlipidemia, Hypertension Additional Past Medical History / Comment(s): INTERNAL BLEEDING HEMORRHOIDS History of Any Multi-Drug Resistant Organisms: None Reported Past Surgical History: No Surgical Hx Reported, Bladder Surgery, Tubal Ligation Additional Past Surgical History / Comment(s): 02/03/20-REDUCTION OF LT LABIAL MINOR. RT VEIN LIGATION. BLADDER SUSPENSION. D & C Past Anesthesia/Blood Transfusion Reactions: Postoperative Nausea & Vomiting (PONV) Past Psychological History: No Psychological Hx Reported Smoking Status: Former smoker Past Alcohol Use History: None Reported Past Drug Use History: None Reported - Past Family History Mother Family Medical History: No Reported History General Exam Limitations: no limitations General appearance: alert, in no apparent distress, anxious Head exam: Present: atraumatic, normocephalic, normal inspection Eye exam: Present: normal appearance, PERRL, EOMI. Absent: scleral icterus, conjunctival injection, periorbital swelling ENT exam: Present: normal exam, mucous membranes moist Neck exam: Present: normal inspection, full ROM. Absent: tenderness, meningismus, lymphadenopathy Respiratory exam: Present: normal lung sounds bilaterally. Absent: respiratory distress, wheezes, rales, rhonchi, stridor Cardiovascular Exam: Present: regular rate, normal rhythm, normal heart sounds. Absent: systolic murmur, diastolic murmur, rubs, gallop, clicks GI/Abdominal exam: Present: soft, normal bowel sounds. Absent: distended, tenderness, guarding, rebound, rigid Course Vital Signs 05/06/24 09:25 Temperature 98 F Pulse Rate 70 Respiratory 20 Rate Blood Pressure 150/90 O2 Sat by Pulse 97 Oximetry Medical Decision Making - Medical Decision Making Was pt. sent in by a medical professional or institution (, ANGEL, NET MANAGER, urgent care, hospital, or custodial...) When possible be specific @ -[No] Did you speak to anyone other than the patient for history (EMS, parent, family, police, friend...)? What history was obtained from this source @ -[No] Did you review nursing and triage notes (agree or disagree)? Why? @ -[I reviewed and agree with nursing and triage notes] Were old charts reviewed (outside hosp., previous admission, EMS record, old EKG, old radiological studies, urgent care reports/EKG's, custodial records)? Report findings @ -[No old charts were reviewed] Differential Diagnosis (chest pain, altered mental status, abdominal pain women, abdominal pain men, vaginal bleeding, weakness, fever, dyspnea, syncope, headache, dizziness, GI bleed, back pain, seizure, CVA, palpatations, mental health, musculoskeletal)? @ -Differential Vaginal Bleeding: Spontaneous , threatened , molar , ectopic , bloody show, incompetent cervix, abruptioplacenta, placenta previa, uterine rupture, dysfunctional uterine bleeding, hemorrhage, uterine fibroids, this is not meant to be an all-inclusive list. EKG interpreted by me (3pts min.). @ -None X-rays interpreted by me (1pt min.). @ -[None done] CT interpreted by me (1pt min.). @ -None done U/S interpreted by me (1pt. min.). @ -Ultrasound pelvic showing endometrial thickening with microcystic areas, pelvic venous congestion syndrome What testing was considered but not performed or refused? (CT, X-rays, U/S, labs)? Why? @ -None What meds were considered but not given or refused? Why? @ -None Did you discuss the management of the patient with other professionals (professionals i.e. , ANGEL, NET MANAGER, lab, RT, psych nurse, social welfare clerk, shipyard laborer, teacher, police commanding officer, home health care case manager)? Give summary @ -No Was smoking cessation discussed for >3mins.? @ -No Was critical care preformed (if so, how long)? @ -No Were there social determinants of health that impacted care today? How? (Ho melessness, low income, unemployed, alcoholism, drug addiction, transportation, low edu. Level, literacy, decrease access to med. care, [facility], rehab)? @ -No Was there de-escalation of care discussed even if they declined (Discuss DNR or withdrawal of care, Hospice)? DNR status @ -No What co-morbidities impacted this encounter? (DM, HTN, Smoking, COPD, CAD, Cancer, CVA, ARF, Chemo, Hep., AIDS, mental health diagnosis, sleep apnea, morbid obesity)? @ -None Was patient admitted / discharged? Hospital course, mention meds given and route, prescriptions, significant lab abnormalities, going to OR and other pertinent info. @ -Discharge patient is no signs distress laboratory studies sent unremarkable patient has dysfunctional uterine bleeding endometrial thickening possible pelvic congestion syndrome patient is required to follow-up with EDUCATION PROGRAM SPECIALIST. We discussed return parameters she has no significant hemorrhaging at this time. Patient agrees with plan to follow-up. Undiagnosed new problem with uncertain prognosis? @ -No Drug Therapy requiring intensive monitoring for toxicity (Heparin, Nitro, Insulin, Cardizem)? @ -No Were any procedures done? @ -No Diagnosis/symptom? @ -Dysfunctional uterine bleeding endometrial thickening Acute, or Chronic, or Acute on Chronic? @ -Acute Uncomplicated (without systemic symptoms) or Complicated (systemic symptoms)? @ -Uncomplicated Side effects of treatment? @ -No Exacerbation, Progression, or Severe Exacerbation? @ -No Poses a threat to life or bodily function? How? (Chest pain, USA, NH, pneumonia, PE, COPD, DKA, ARF, appy, cholecystitis, CVA, Diverticulitis, Homicidal, Suicidal, threat to staff... and all critical care pts) @ -No - Lab Data Result diagrams: 05/06/24 11:45 05/06/24 11:45 Lab Results 05/06/24 05/06/24 05/06/24 Range/Units 11:05 11:45 11:45 WBC 7.5 (3.8-10.6) k/uL RBC 4.98 (3.80-5.40) m/uL Hgb 15.1 (11.4-16.0) gm/dL Hct 45.5 (34.0-46.0) % MCV 91.3 (80.0-100.0) fL MCH 30.3 (25.0-35.0) pg MCHC 33.2 (31.0-37.0) g/dL RDW 12.9 (11.5-15.5) % Plt Count 235 (150-450) k/uL MPV 7.4 Neutrophils % 63 % Lymphocytes % 29 % Monocytes % 4 % Eosinophils % 2 % Basophils % 0 % Neutrophils # 4.8 (1.3-7.7) k/uL Lymphocytes # 2.2 (1.0-4.8) k/uL Monocytes # 0.3 (0-1.0) k/uL Eosinophils # 0.2 (0-0.7) k/uL Basophils # 0.0 (0-0.2) k/uL PT (10.0-12.5) sec INR (<1.2) APTT (22.0-30.0) sec Sodium 139 (137-145) mmol/L Potassium 3.5 (3.5-5.1) mmol/L Chloride 98 (98-107) mmol/L Carbon Dioxide 30 (22-30) mmol/L Anion Gap 11 mmol/L BUN 20 H (7-17) mg/dL Creatinine 0.87 (0.52-1.04) mg/dL Est GFR (CKD-EPI)AfAm 88 (>60 ml/min/1.73 sqM) Est GFR (CKD-EPI)NonAf 76 (>60 ml/min/1.73 sqM) Glucose 98 (74-99) mg/dL Calcium 9.9 (8.4-10.2) mg/dL Total Bilirubin 0.6 (0.2-1.3) mg/dL AST 28 (14-36) U/L ALT 39 H (4-34) U/L Alkaline Phosphatase 69 (38-126) U/L Total Protein 8.2 (6.3-8.2) g/dL Albumin 5.0 (3.5-5.0) g/dL Urine Color Light Yellow Urine Appearance Clear (Clear) Urine pH 5.5 (5.0-8.0) Ur Specific Ponce 1.013 (1.001-1.035) Urine Protein Negative (Negative) Urine Glucose (UA) Negative (Negative) Urine Ketones Negative (Negative) Urine Blood Large H (Negative) Urine Nitrite Negative (Negative) Urine Bilirubin Negative (Negative) Urine Urobilinogen <2.0 (<2.0) mg/dL Ur Leukocyte Esterase Negative (Negative) Urine RBC >182 H (0-5) /hpf Urine WBC 9 H (0-5) /hpf Ur Squamous Epith Cells <1 (0-4) /hpf 05/06/24 Range/Units 11:45 WBC (3.8-10.6) k/uL RBC (3.80-5.40) m/uL Hgb (11.4-16.0) gm/dL Hct (34.0-46.0) % MCV (80.0-100.0) fL MCH (25.0-35.0) pg MCHC (31.0-37.0) g/dL RDW (11.5-15.5) % Plt Count (150-450) k/uL MPV Neutrophils % % Lymphocytes % % Monocytes % % Eosinophils % % Basophils % % Neutrophils # (1.3-7.7) k/uL Lymphocytes # (1.0-4.8) k/uL Monocytes # (0-1.0) k/uL Eosinophils # (0-0.7) k/uL Basophils # (0-0.2) k/uL PT 10.3 (10.0-12.5) sec INR 0.9 (<1.2) APTT 24.2 (22.0-30.0) sec Sodium (137-145) mmol/L Potassium (3.5-5.1) mmol/L Chloride (98-107) mmol/L Carbon Dioxide (22-30) mmol/L Anion Gap mmol/L BUN (7-17) mg/dL Creatinine (0.52-1.04) mg/dL Est GFR (CKD-EPI)AfAm (>60 ml/min/1.73 sqM) Est GFR (CKD-EPI)NonAf (>60 ml/min/1.73 sqM) Glucose (74-99) mg/dL Calcium (8.4-10.2) mg/dL Total Bilirubin (0.2-1.3) mg/dL AST (14-36) U/L ALT (4-34) U/L Alkaline Phosphatase (38-126) U/L Total Protein (6.3-8.2) g/dL Albumin (3.5-5.0) g/dL Urine Color Urine Appearance (Clear) Urine pH (5.0-8.0) Ur Specific Ponce (1.001-1.035) Urine Protein (Negative) Urine Glucose (UA) (Negative) Urine Ketones (Negative) Urine Blood (Negative) Urine Nitrite (Negative) Urine Bilirubin (Negative) Urine Urobilinogen (<2.0) mg/dL Ur Leukocyte Esterase (Negative) Urine RBC (0-5) /hpf Urine WBC (0-5) /hpf Ur Squamous Epith Cells (0-4) /hpf Disposition Clinical Impression: Dysfunctional uterine bleeding, Thickened endometrium Disposition: HOME SELF-CARE Condition: Stable Instructions (If sedation given, give patient instructions): Abnormal (Dysfunctional) Uterine Bleeding (ED) Additional Instructions: Please return to the Emergency Department if symptoms worsen or any other concerns. Is patient prescribed a controlled substance at d/c from ED?: No Referrals: Harpal Ortiz MD [Primary Care Provider] - 1-2 days Time of Disposition: 12:52
--- NOTE | 2024-05-06 10:43 | US ---
EXAMINATION TYPE: US transvaginal DATE OF EXAM: 05/06/2024 COMPARISON: 04/05/2011 CLINICAL INDICATION: Female, 53 years old with history of bleeding; heavy vag bleeding x 5 days. Left pelvic pain. Post catina x 3 years, began spotting last July, endo Bx revealed "inactive strophic endom etrium" TECHNIQUE: Transvaginal (TV). Transvaginal sonographic images were medically necessary to better assess the following anatomy: Endo metrium Doppler imaging: Color Doppler Images were obtained. Spectral doppler images were obtained. FINDINGS: Date of LMP: post catina x 3 years EXAM MEASUREMENTS: Uterus: 9.4x5.4x4.6 cm Endometrial Stripe: 1.5 cm Right Ovary: 2.6x1.9x2.3 cm Left Ovary: 2.5x1.2x1.7 cm 1. Uterus: Anteverted heterogenous, dilated vessels bilaterally ?pelvic congestion syndrome? 2. Endometrium: thickened, microcystic areas, heterogenous 3. Right Ovary: 1.7x1.8x1.8cmcystic area 4. Left Ovary: wnl, cystic tubular area adjacent to ovary: 3.0x1.1x1.5cm ?hydrosalpinx Spectral, color and waveform doppler imaging shows good arterial and venous flow within the ovaries ; there is no evidence for ovarian torsion. 5. Bilateral Adnexa: dilated vessels and tubular structure in left adnexa discussed above 6. Posterior cul-de-sac: wnl exam limited by bowel gas IMPRESSION: 1. Correlate for pelvic congestion syndrome. 2. Thickened endometrium with microcystic areas. Hysteroscopy recommended. 3. Possible left-sided hydrosalpinx. [facility], , 05/06/2024 10:40 AM
[2024-05-06 11:44] LABS: Appearance,Urine Clear (Clear); Bilirubin,Urine Negative (Negative); Blood,Urine Large (Negative); Color,Urine Light Yellow; Glucose,Urine (UA) Negative (Negative); Ketones,Urine Negative (Negative); Leukocyte Esterase,Urine Negative (Negative); Nitrite,Urine Negative (Negative); PH, Urine 5.5 (5.0-8.0); Protein,Urine Negative (Negative); RBC,Urine >182 /hpf (0-5); Specific Gravity,Urine 1.013 (1.001-1.035); Squamous Epithelial Cell,Urine <1 /hpf (0-4); Urobilinogen,Urine <2.0 mg/dL (<2.0); WBC,Urine 9 /hpf (0-5)
[2024-05-06 11:56] LABS: Basophils % (A) 0 %; Eosinophils # (A) 0.2 k/uL (0-0.7); Eosinophils % (A) 2 %; HCT 45.5 % (34.0-46.0); HGB 15.1 gm/dL (11.4-16.0); Lymphocytes # (A) 2.2 k/uL (1.0-4.8); Lymphocytes % (A) 29 %; MCH 30.3 pg (25.0-35.0); MCHC 33.2 g/dL (31.0-37.0); MCV 91.3 fL (80.0-100.0); Mean Platelet Volume 7.4; Monocytes # (A) 0.3 k/uL (0-1.0); Monocytes % (A) 4 %; Neutrophils # (A) 4.8 k/uL (1.3-7.7); Neutrophils % (A) 63 %; Platelet Count 235 k/uL (150-450); RBC 4.98 m/uL (3.80-5.40); RDW 12.9 % (11.5-15.5); WBC 7.5 k/uL (3.8-10.6)
[2024-05-06 12:10] LABS: INR 0.9 (<1.2); Partial Thromboplastin Time 24.2 sec (22.0-30.0); Prothrombin Time 10.3 sec (10.0-12.5)
[2024-05-06 12:31] LABS: ALT 39 U/L (4-34); AST 28 U/L (14-36); African American GFR (CKD) 88 (>60 ml/min/1.73 sqM); Alkaline Phosphatase 69 U/L (38-126); Anion Gap 11 mmol/L; Blood Urea Nitrogen 20 mg/dL (7-17); Calcium 9.9 mg/dL (8.4-10.2); Carbon Dioxide 30 mmol/L (22-30); Chloride 98 mmol/L (98-107); Glucose 98 mg/dL (74-99); Non-African American GFR(CKD) 76 (>60 ml/min/1.73 sqM); Potassium 3.5 mmol/L (3.5-5.1); Sodium 139 mmol/L (137-145); Total Bilirubin 0.6 mg/dL (0.2-1.3); Total Protein 8.2 g/dL (6.3-8.2)
[2024-05-06 13:09] VITALS: BP 144/89; PULSE 68; RESP 16
== END 2024-05-06 13:28 | disposition home or self-care (01) ==
LOC: EC 08:59
DX: N93.8 Other specified abnormal uterine and vaginal bleeding (principal); R93.89 Abnormal findings on diagnostic imaging of other specified body structures; Z88.0 Allergy status to penicillin; Z88.2 Allergy status to sulfonamides; Z91.048 Other nonmedicinal substance allergy status; Z87.891 Personal history of nicotine dependence
CPT/HCPCS: 36415; 76830; 80053; 81001; 85025; 85610; 85730; 93975; 99284

== ENCOUNTER → 2024-05-15 | Outpatient (CLI) | payer BC ==
--- NOTE | 2024-05-15 15:09 | MM ---
Reason for Exam: Screening (asymptomatic). Last mammogram was performed 1 year(s) and 1 month(s) ago. Indicated Problems: Lump or thickening of the right side for 3 Month(s). Patient History: Menarche at age 12. First Full-Term at age 23. Postmenopausal. Patient has history of breast feeding. Risk Values: Moira 5 year model risk: 1.0%. NCI Lifetime model risk: 7.5%. Prior Study Comparison: 03/02/2021 Bilateral Screening Mammogram, [facility]. 04/08/2022 Bilateral MG 3D screening mammo w/cad, [facility]. 04/13/2023 Bilateral MG 3D screening mammo w/cad, [facility]. Tissue Density: The breasts are heterogeneously dense, which may obscure small masses. Findings: Analyzed By CAD. Small spiculated nodular density 3 cm from the nipple upper outer left breast. Additional views are recommended. The breasts are otherwise free of additional mass or distortion. No suspicious microcalcifications. Overall Assessment: Incomplete: need additional imaging evaluation, BI-RAD 0 Management: Diagnostic Mammogram of the left breast. . Patient should continue monthly self-breast exams. A clinical breast exam by your physician is recommended on an annual basis. This exam should not preclude additional follow-up of suspicious palpable abnormalities. Note on Moira scores and lifetime risk: 1. A Moira score greater than 3% is considered moderate risk. If this is the case, consider specialist referral to assess eligibility for a risk reducing agent. 2. If overall lifetime risk for the development of breast cancer is 20% or higher, the patient may qualify for future screening with alternating mammogram and breast MRI. [facility], , 05/15/2024 3:06 PM. Electronically signed and approved by: Nate Buchanan M.D. Radiologis
== END | disposition home or self-care (01) ==
LOC: RADMAMWWP 14:38
PROVIDERS: ATTEND Obstetrics & Gynecology
DX: Z12.31 Encounter for screening mammogram for malignant neoplasm of breast (principal); R92.333 Mammographic heterogeneous density, bilateral breasts; Z78.0 Asymptomatic menopausal state
CPT/HCPCS: 77063; 77067

== ENCOUNTER → 2024-05-17 | Outpatient (CLI) | payer BC ==
--- NOTE | 2024-05-17 15:20 | MM ---
Reason for Exam: Additional evaluation requested from prior study. Last screening mammogram was performed less than 1 month ago. Patient History: Menarche at age 12. First Full-Term at age 23. Postmenopausal. Patient has history of breast feeding. Risk Values: Moira 5 year model risk: 1.0%. NCI Lifetime model risk: 7.5%. Prior Study Comparison: 04/08/2022 Bilateral MG 3D screening mammo w/cad, [facility]. 04/13/2023 Bilateral MG 3D screening mammo w/cad, [facility]. 05/15/2024 Bilateral MG 3D screening mammo w/cad, [facility]. Tissue Density: Left: The breasts are heterogeneously dense, which may obscure small masses. Findings: Analyzed By CAD. Asymmetric density does not persist upon spot compression imaging. No masses identified with certainty. Overall Assessment: Benign, BI-RAD 2 Management: Screening Mammogram of both breasts in 1 year. . Results were given to the patient verbally at the time of exam. Patient should continue monthly self-breast exams. A clinical breast exam by your physician is recommended on an annual basis. This exam should not preclude additional follow-up of suspicious palpable abnormalities. Note on Moira scores and lifetime risk: 1. A Moira score greater than 3% is considered moderate risk. If this is the case, consider specialist referral to assess eligibility for a risk reducing agent. 2. If overall lifetime risk for the development of breast cancer is 20% or higher, the patient may qualify for future screening with alternating mammogram and breast MRI. [facility], , 05/17/2024 3:17 PM. Electronically signed and approved by: Nate Buchanan M.D. Radiologis
== END | disposition home or self-care (01) ==
LOC: RADMAMWWP 14:45
PROVIDERS: ATTEND Obstetrics & Gynecology
DX: R92.8 Other abnormal and inconclusive findings on diagnostic imaging of breast (principal); N63.21 Unspecified lump in the left breast, upper outer quadrant; R92.332 Mammographic heterogeneous density, left breast; Z78.0 Asymptomatic menopausal state
CPT/HCPCS: 77061; 77065